=== PATIENT | female | born 1940 | race Caucasian/White ===

== ENCOUNTER 2019-05-07 06:50 | Inpatient (IN) | payer MEDICARE, BC ==
[~2019-05-07 06:50] MED LIST: Bisacodyl 5 MG Tab PO PRN; Cyclobenzaprine 10 MG Tab PO PRN; Lidocaine 1%/Sod Bicarbonate in NS 8.4% 1 ML Syringe IDERM PRN; Magnesium Hydroxide 400 MG/5 ML Susp 30 ML Cup PO PRN; Morphine 2 MG/ML Syringe IVPUSH PRN; Naloxone 0.4 MG/ML SDV IVPUSH PRN; Ondansetron 4 MG/2 ML SDV IVPUSH PRN; Sennosides 8.6 MG Tab PO PRN; Sodium Chloride 0.9% 10 ML Syringe FLUSH PRN
[2019-05-07] MEDS ORDERED: ceFAZolin 2 GM in Premix Bag 1 BAG IV SCH (07:00)
[2019-05-07] MEDS: Lactated Ringers 1,000 ML IV SCH ×2 (07:20→16:49)
--- NOTE | 2019-05-07 07:26 | PCM.PREANE ---
Preanesthetic Assessment - Anesthesia/Transfusion/Family Hx Anesthesia History: Prior Anesthesia Without Reaction Family History of Anesthesia Reaction: No Transfusion History: No Prior Transfusion(s) - Review of Systems General: No Symptoms Pulmonary: No Symptoms Cardiovascular: No Symptoms Gastrointestinal: No Symptoms Neurological: No Symptoms Other: Reports: None - Physical Assessment NPO Status Date: 05/06/19 NPO Status Time: 18:30 Height: 1.6 m Weight: 64.8 kg ASA Class: 2 Mental Status: Alert & Oriented x3 Dentition: Reports: Dentures (full upper, partial lower) Thyro-Mental Finger Breadths: 3 Mouth Opening Finger Breadths: 3 ROM/Head Extension: Full Lungs: Clear to Auscultation, Normal Respiratory Effort Cardiovascular: Regular Rate, Regular Rhythm - Imaging/EKG Impressions: NSR per EKG 04/24/19 CXR wnl - Allergies Allergies/Adverse Reactions: Allergies Allergy/AdvReac Type Severity Reaction Status Date / Time No Known Allergies Allergy Verified 05/06/19 10:48 - Blood Blood Available: Yes Product(s) Available: PRBC - Acknowledgements Anesthesia Type Planned: General Anesthesia, Spinal Pt an Appropriate Candidate for the Planned Anesthesia: Yes Alternatives and Risks of Anesthesia Discussed w Pt/Guardian: Yes Pt/Guardian Understands and Agrees with Anesthesia Plan: Yes PreAnesthesia Questionnaire HEENT History: Reports: Cataract, Impaired Vision, Macular Degeneration, Other ( See Below) Other HEENT History: impacted cerumen Cardiovascular History: Reports: Hypertension [employer]ATOR History: Reports: None Musculoskeletal History: Other Musculoskeletal History: olecranon bursitis, knee arthroscopy - Past Surgical History Head Surgeries/Procedures: Reports: None Cardiovascular Surgical History: Reports: None Respiratory Surgical History: Reports: None GI Surgical History: Reports: None Female Surgical History: Reports: Tubal Ligation Male Surgical History: Reports: None Endocrine Surgical History: Reports: None Neurological Surgical History: Reports: None Musculoskeletal Surgical History: Reports: Arthroscopic Knee Oncologic Surgical History: Reports: None Dermatological Surgical History: Reports: None - SUBSTANCE USE Smoking Status *Q: Never Smoker Second Hand Smoke Exposure: No Recreational Drug Use History: No - HOME MEDS Home Medications: Home Meds Cholecalciferol (Vitamin D3) [Vitamin D3] 5,000 unit PO DAILY 05/06/19 [History] amLODIPine Besylate [Amlodipine Besylate] 5 mg PO DAILY 05/06/19 [History] lisinopriL [Lisinopril] 20 mg PO DAILY 05/06/19 [History] - CURRENT (IN HOUSE) MEDS Current Meds: Current Medications Aspirin (Ecotrin) 325 mg PO BID [facility] Bisacodyl (Dulcolax) 5 mg PO DAILY PRN PRN Reason: Constipation Morphine Sulfate 8 mg/Epinephrine HCl 0.3 mg/Cefuroxime Sodium 750 mg/Ketorolac Tromethamine 30 mg/Sodium Chloride 27.9 ml 0 mg .XX ASDIRECTED PRN PRN Reason: Other Stop: 05/07/19 12:00 Cyclobenzaprine HCl (Flexeril) 5 mg PO BID PRN PRN Reason: Spasms Docusate Sodium (Colace) 100 mg PO BID KRISTINA Famotidine (Pepcid) 20 mg PO Q12H [facility] Lactated Ringer's (Ringers, Lactated) 1,000 mls @ 125 mls/hr IV ASDIRECTED [facility] Cefazolin Sodium/Dextrose 2 gm (/ Premix) 50 mls @ 100 mls/hr IV Q8H [facility] Stop: 05/07/19 23:44 Ketorolac Tromethamine (Toradol) 15 mg IVPUSH Q6H PRN PRN Reason: Pain Lidocaine/Sodium Bicarbonate (Buffered Lidocaine 1% In Ns 8.4%) 0.25 ml IDERM ONETIME PRN PRN Reason: Prior to IV Start Magnesium Hydroxide (Milk Of Magnesia) 30 ml PO BID PRN PRN Reason: Constipation Morphine Sulfate (Morphine) 2 mg IVPUSH Q2H PRN PRN Reason: Breakthrough Pain Naloxone HCl (Narcan) 0.1 mg IVPUSH Q5M PRN PRN Reason: Oversedation Ondansetron HCl (Zofran) 4 mg IVPUSH Q6H PRN PRN Reason: Nausea/Vomiting Oxycodone/Acetaminophen (Percocet 325-5 Mg) 1 - 2 tab PO Q4H PRN PRN Reason: Pain Senna (Senna) 8.6 mg PO BID PRN PRN Reason: Constipation Sodium Chloride (Saline Flush) 10 ml FLUSH ASDIRECTED PRN PRN Reason: Keep Vein Open Discontinued Medications Cefazolin Sodium/Dextrose 2 gm (/ Premix) 50 mls @ 100 mls/hr IV Q8H [facility] Stop: 05/07/19 23:29
[2019-05-07] MEDS ORDERED: Midazolam 1 MG/ML 2 ML SDV ONE (07:49)
[2019-05-07] MEDS ORDERED: Ondansetron 4 MG/2 ML SDV ONE (07:49)
[2019-05-07] MEDS ORDERED: Propofol 200 MG/20 ML SDV ONE ×4 (07:49→10:35)
[2019-05-07] MEDS ORDERED: fentaNYL 100 MCG/2 ML SDV ONE (07:49)
[2019-05-07] MEDS ORDERED: Lidocaine 1% 4 ML ONE (07:49)
[2019-05-07] MEDS ORDERED: ceFAZolin 1 GM Vial ONE (08:27)
[2019-05-07] MEDS ORDERED: ePHEDrine/Normal Saline 25 MG/5 ML Syringe ONE ×2 (09:09→09:42)
[2019-05-07] MEDS: ceFAZolin 1 GM Vial ONE ×2 (09:31→10:15)
[2019-05-07] MEDS: Bupivacaine 0.25% 10 ML SDV ONE ×4 (09:32→10:18)
[2019-05-07] MEDS: Iodine/Sodium Iodide 2% Tincture 30 ML Bottle ONE ×2 (09:32→10:12)
[2019-05-07] MEDS: Morphine 8 MG, EPINEPHrine 0.3 MG, Cefuroxime 750 MG, Ketorolac 30 MG, Sodium Chloride ... PRN ×10 (09:33→10:17)
[2019-05-07] MEDS: Vancomycin 1 GM SDV ONE ×2 (09:33→10:20)
[2019-05-07] MEDS ORDERED: Lactated Ringers 1,000 ML ONE ×2 (10:13→10:36)
--- NOTE | 2019-05-07 11:01 | PCM.POSTAN ---
POST ANESTHESIA ASSESSMENT - MENTAL STATUS Mental Status: Somnolent - VITAL SIGNS Vital Signs: Last Vital Signs Temp 36.8 C 05/07/19 07:00 Pulse 83 05/07/19 07:00 Resp 16 05/07/19 07:00 BP 149/75 H 05/07/19 07:00 Pulse Ox 96 05/07/19 07:00 - RESPIRATORY Respiratory Status: Respiratory Rate WNL, Airway Patent, O2 Saturation Stable, Supplemental Oxygen - CARDIOVASCULAR CV Status: Pulse Rate WNL, Blood Pressure Stable - GASTROINTESTINAL GI Status: No Symptoms - PAIN Pain Score: 0 - POST OP HYDRATION Hydration Status: Adequate & Stable - OBSERVATIONS Free Text/Narrative:: no anesthesia complications noted
[2019-05-07] MEDS: Acetaminophen/oxyCODONE 325-5 MG Tab PO PRN ×3 (12:07→21:24)
--- NOTE | 2019-05-07 12:31 | CR ---
Pelvis and left hip: AP view of the pelvis was obtained as well as crosstable lateral view of the left hip. Left hip prosthesis is seen. Soft tissue air is noted. Components are aligned. Underlying bony structures are intact. Severe joint space narrowing is noted within the right hip. Bony structures are osteopenic. Impression: 1. Recently placed left hip prosthesis. 2. Severe joint space narrowing at the right hip. 3. Osteopenia. Diagnostic code #2 This report was dictated in [place] Standard Time
[2019-05-07] MEDS ORDERED: Ketorolac 15 MG/ML SDV IVPUSH PRN (14:00)
[2019-05-07] MEDS: ceFAZolin 2 GM in Premix Bag 1 BAG IV SCH ×2 (16:12→23:44)
[2019-05-07] MEDS: Famotidine 20 MG Tab PO SCH (21:23)
[2019-05-07] MEDS: Docusate Sodium 100 MG Cap PO SCH (21:24)
--- NOTE | 2019-05-08 08:05 | PCM48HPAN ---
Post Anesthesia Note - EVALUATION WITHIN 48HRS OF ANESTHETIC Vital Signs in Normal Range: Yes Patient Participated in Evaluation: Yes Respiratory Function Stable: Yes Airway Patent: Yes Cardiovascular Function Stable: Yes Hydration Status Stable: Yes Pain Control Satisfactory: Yes Nausea and Vomiting Control Satisfactory: Yes Mental Status Recovered: Yes (no complaints- little pain) Vital Signs: Last Vital Signs Temp 97.7 F 05/08/19 03:47 Pulse 84 05/08/19 03:47 Resp 18 05/08/19 03:47 BP 121/50 L 05/08/19 03:47 Pulse Ox 99 05/08/19 03:47
[2019-05-08] MEDS: Acetaminophen/oxyCODONE 325-5 MG Tab PO PRN (08:16)
[2019-05-08] MEDS: Famotidine 20 MG Tab PO SCH (08:17)
[2019-05-08] MEDS: ceFAZolin 2 GM in Premix Bag 1 BAG IV SCH (08:18)
[2019-05-08] MEDS: Docusate Sodium 100 MG Cap PO SCH (08:18)
--- NOTE | 2019-05-08 08:44 | PCM.SURGPN ---
- General Info Date of Service: 05/08/19 POD#: 1 Functional Status: Reports: Pain Controlled, Tolerating Diet, Ambulating, Urinating, Incentive Spirometry, Other (The pt states she is doing well.) - Review of Systems General: Denies: Fever, Chills Pulmonary: Denies: Shortness of Breath Cardiovascular: Denies: Chest Pain Gastrointestinal: Denies: Abdominal Pain - Patient Data Vitals - Most Recent: Last Vital Signs Temp 98.4 F 05/08/19 07:28 Pulse 95 05/08/19 07:28 Resp 16 05/08/19 07:28 BP 150/64 H 05/08/19 08:18 Pulse Ox 99 05/08/19 07:28 Weight - Most Recent: 149 lb 8 oz I&O - Last 24 Hours: Intake & Output 05/07/19 05/08/19 05/08/19 22:59 06:59 14:59 Intake Total 2324 850 Output Total 0 1100 Balance 2324 -250 Lab Results Last 24 Hrs: Laboratory Results - last 24 hr 05/08/19 05/08/19 Range/Units 05:08 05:08 WBC 6.02 (3.98-10.04) K/mm3 RBC 3.76 L (3.98-5.22) M/mm3 Hgb 10.6 L D (11.2-15.7) gm/dl Hct 34.5 (34.1-44.9) % MCV 91.8 D (79.4-94.8) fl MCH 28.2 (25.6-32.2) pg MCHC 30.7 L (32.2-35.5) g/dl RDW Std Deviation 42.6 (36.4-46.3) fL Plt Count 197 D (182-369) K/mm3 MPV 9.6 (9.4-12.3) fl Sodium 136 (136-145) mEq/L Potassium 4.4 (3.5-5.1) mEq/L Chloride 102 (98-107) mEq/L Carbon Dioxide 29 (21-32) mEq/L Anion Gap 9.4 (5-15) BUN 16 (7-18) mg/dL Creatinine 0.7 (0.55-1.02) mg/dL Est Cr Clr Drug Dosing 55.09 mL/min Estimated GFR (MDRD) > 60 (>60) mL/min BUN/Creatinine Ratio 22.9 H (14-18) Glucose 111 (83-115) mg/dL Calcium 8.4 L (8.5-10.1) mg/dL Total Bilirubin 1.1 H (0.2-1.0) mg/dL AST 26 (15-37) U/L ALT 19 (14-59) U/L Alkaline Phosphatase 58 (46-116) U/L Total Protein 5.2 L (6.4-8.2) g/dl Albumin 2.7 L (3.4-5.0) g/dl Globulin 2.5 gm/dL Albumin/Globulin Ratio 1.1 (1-2) Med Orders - Current: Current Medications Amlodipine Besylate (Norvasc) 5 mg PO DAILY [facility] Last Admin: 05/08/19 08:17 Dose: 5 mg Aspirin (Ecotrin) 325 mg PO BID [facility] Last Admin: 05/08/19 08:17 Dose: 325 mg Bisacodyl (Dulcolax) 5 mg PO DAILY PRN PRN Reason: Constipation Cholecalciferol (Vitamin D3) 5,000 unit PO DAILY [facility] Last Admin: 05/08/19 08:18 Dose: 5,000 unit Cyclobenzaprine HCl (Flexeril) 5 mg PO BID PRN PRN Reason: Spasms Docusate Sodium (Colace) 100 mg PO BID [facility] Last Admin: 05/08/19 08:18 Dose: 100 mg Famotidine (Pepcid) 20 mg PO Q12H [facility] Last Admin: 05/08/19 08:17 Dose: 20 mg Cefazolin Sodium/Dextrose 2 gm (/ Premix) 50 mls @ 100 mls/hr IV Q8H [facility] Stop: 05/08/19 08:59 Last Admin: 05/08/19 08:18 Dose: 100 mls/hr Ketorolac Tromethamine (Toradol) 15 mg IVPUSH Q6H PRN PRN Reason: Pain Last Admin: 05/07/19 21:25 Dose: 15 mg Lisinopril (Prinivil) 20 mg PO DAILY [facility] Last Admin: 05/08/19 08:18 Dose: 20 mg Magnesium Hydroxide (Milk Of Magnesia) 30 ml PO BID PRN PRN Reason: Constipation Morphine Sulfate (Morphine) 2 mg IVPUSH Q2H PRN PRN Reason: Breakthrough Pain Naloxone HCl (Narcan) 0.1 mg IVPUSH Q5M PRN PRN Reason: Oversedation Ondansetron HCl (Zofran) 4 mg IVPUSH Q6H PRN PRN Reason: Nausea/Vomiting Last Admin: 05/08/19 08:37 Dose: 4 mg Oxycodone/Acetaminophen (Percocet 325-5 Mg) 1 - 2 tab PO Q4H PRN PRN Reason: Pain Last Admin: 05/08/19 08:16 Dose: 2 tab Senna (Senna) 8.6 mg PO BID PRN PRN Reason: Constipation Discontinued Medications Bupivacaine HCl (Sensorcaine-Mpf 0.25%) Confirm Administered Dose 10 ml .ROUTE .STK-MED ONE Stop: 05/07/19 08:28 Last Admin: 05/07/19 10:18 Dose: 10 ml Bupivacaine HCl (Sensorcaine-Mpf 0.25%) Confirm Administered Dose 20 ml .ROUTE .STK-MED ONE Stop: 05/07/19 08:28 Last Admin: 05/07/19 10:18 Dose: 20 ml Cefazolin Sodium (Ancef) Confirm Administered Dose 2 gm .ROUTE .STK-MED ONE Stop: 05/07/19 07:51 Last Admin: 05/07/19 10:15 Dose: 2 gm Cefazolin Sodium (Ancef) Confirm Administered Dose 2 gm .ROUTE .STK-MED ONE Stop: 05/07/19 08:28 Morphine Sulfate 8 mg/Epinephrine HCl 0.3 mg/Cefuroxime Sodium 750 mg/Ketorolac Tromethamine 30 mg/Sodium Chloride 27.9 ml 0 mg .XX ASDIRECTED PRN PRN Reason: Other Stop: 05/07/19 12:00 Last Admin: 05/07/19 10:17 Dose: 788.3 mg Ephedrine Sulfate (Ephedrine In Ns) Confirm Administered Dose 25 mg .ROUTE .STK- MED ONE Stop: 05/07/19 09:10 Ephedrine Sulfate (Ephedrine In Ns) Confirm Administered Dose 25 mg .ROUTE .STK- MED ONE Stop: 05/07/19 09:43 Fentanyl (Sublimaze) Confirm Administered Dose 100 mcg .ROUTE .STK-MED ONE Stop: 05/07/19 07:50 Lactated Ringer's (Ringers, Lactated) 1,000 mls @ 125 mls/hr IV ASDIRECTED [facility] Stop: 05/07/19 23:00 Last Admin: 05/07/19 16:49 Dose: 125 mls/hr Cefazolin Sodium/Dextrose 2 gm (/ Premix) 50 mls @ 100 mls/hr IV Q8H [facility] Stop: 05/07/19 23:29 Last Admin: 05/07/19 19:51 Dose: Not Given Lidocaine HCl (Xylocaine-Mpf 1%) Confirm Administered Dose 4 mls @ as directed .ROUTE .STK-MED ONE Stop: 05/07/19 07:50 Lactated Ringer's (Ringers, Lactated) Confirm Administered Dose 1,000 mls @ as directed .ROUTE .STK-MED ONE Stop: 05/07/19 10:14 Lactated Ringer's (Ringers, Lactated) Confirm Administered Dose 1,000 mls @ as directed .ROUTE .STK-MED ONE Stop: 05/07/19 10:37 Iodine (Iodine 2% Mild Tincture) Confirm Administered Dose 30 ml .ROUTE .STK- MED ONE Stop: 05/07/19 08:27 Last Admin: 05/07/19 10:12 Dose: 18 ml Lidocaine/Sodium Bicarbonate (Buffered Lidocaine 1% In Ns 8.4%) 0.25 ml IDERM ONETIME PRN PRN Reason: Prior to IV Start Last Admin: 05/07/19 07:19 Dose: 0.25 ml Midazolam HCl (Versed 1 Mg/Ml) Confirm Administered Dose 2 mg .ROUTE .STK-MED ONE Stop: 05/07/19 07:50 Ondansetron HCl (Zofran) Confirm Administered Dose 4 mg .ROUTE .STK-MED ONE Stop: 05/07/19 07:50 Propofol (Diprivan 20 Ml) Confirm Administered Dose 200 mg .ROUTE .STK-MED ONE Stop: 05/07/19 07:50 Propofol (Diprivan 20 Ml) Confirm Administered Dose 200 mg .ROUTE .STK-MED ONE Stop: 05/07/19 09:31 Propofol (Diprivan 20 Ml) Confirm Administered Dose 200 mg .ROUTE .STK-MED ONE Stop: 05/07/19 10:00 Propofol (Diprivan 20 Ml) Confirm Administered Dose 200 mg .ROUTE .STK-MED ONE Stop: 05/07/19 10:36 Sodium Chloride (Saline Flush) 10 ml FLUSH ASDIRECTED PRN PRN Reason: Keep Vein Open Stop: 05/07/19 18:00 Tranexamic Acid (Cyklokapron) Confirm Administered Dose 1,000 mg .ROUTE .STK- MED ONE Stop: 05/07/19 08:27 Last Admin: 05/07/19 10:21 Dose: 1,000 mg Vancomycin HCl (Vancomycin) Confirm Administered Dose 1 gm .ROUTE .STK-MED ONE Stop: 05/07/19 08:27 Last Admin: 05/07/19 10:20 Dose: 1 gm - Exam Wound/Incisions: Dressing Dry and Intact General: Alert, Cooperative, No Acute Distress Lungs: Normal Respiratory Effort Extremities: Other (Left thigh soft. NVS intact for BLE. Silverio's negative for BLE.) Sepsis Event Note - Evaluation Sepsis Screening Result: No Definite Risk - Focused Exam Vital Signs: Vital Signs Temp Pulse Resp BP Pulse Ox 05/08/19 08:18 150/64 H 05/08/19 08:17 150/64 H 05/08/19 07:28 98.4 F 95 16 150/64 H 99 05/08/19 03:47 97.7 F 84 18 121/50 L 99 05/07/19 23:47 97.9 F 75 14 112/44 L 96 Date Exam was Performed: 05/08/19 Time Exam was Performed: 08:41 - Problem List Review Problem List Initiated/Reviewed/Updated: Yes - My Orders Last 24 Hours: Active Orders 24 hr Category Date Time Status Notify Provider [RC] ASDIRECTED Care 05/07/19 10:59 Active Oxygen Therapy [RC] ASDIRECTED Care 05/07/19 10:59 Active Vital Signs [RC] Q4HR Care 05/07/19 10:59 Active Regular Diet [DIET] Diet 05/07/19 Lunch Active Aspirin [Ecotrin] Med 05/08/19 09:00 Active 325 mg PO BID Cholecalciferol (Vitamin D3) [Vitamin D3] Med 05/08/19 09:00 Active 5,000 unit PO DAILY Docusate Sodium [Colace] Med 05/07/19 21:00 Active 100 mg PO BID Famotidine [Pepcid] Med 05/07/19 21:00 Active 20 mg PO Q12H Ketorolac [Toradol] Med 05/07/19 14:00 Active 15 mg IVPUSH Q6H PRN amLODIPine [Norvasc] Med 05/08/19 09:00 Active 5 mg PO DAILY ceFAZolin [Ancef] 2 gm Med 05/07/19 16:30 Active Premix Bag 1 bag IV Q8H lisinopriL [Prinivil] Med 05/08/19 09:00 Active 20 mg PO DAILY Medication Orders Amlodipine Besylate (Norvasc) 5 mg PO DAILY [facility] Last Admin: 05/08/19 08:17 Dose: 5 mg Aspirin (Ecotrin) 325 mg PO BID [facility] Last Admin: 05/08/19 08:17 Dose: 325 mg Bisacodyl (Dulcolax) 5 mg PO DAILY PRN PRN Reason: Constipation Cholecalciferol (Vitamin D3) 5,000 unit PO DAILY [facility] Last Admin: 05/08/19 08:18 Dose: 5,000 unit Cyclobenzaprine HCl (Flexeril) 5 mg PO BID PRN PRN Reason: Spasms Docusate Sodium (Colace) 100 mg PO BID [facility] Last Admin: 05/08/19 08:18 Dose: 100 mg Admin: 05/07/19 21:24 Dose: 100 mg Famotidine (Pepcid) 20 mg PO Q12H [facility] Last Admin: 05/08/19 08:17 Dose: 20 mg Admin: 05/07/19 21:23 Dose: 20 mg Cefazolin Sodium/Dextrose 2 gm (/ Premix) 50 mls @ 100 mls/hr IV Q8H [facility] Stop: 05/08/19 08:59 Last Admin: 05/08/19 08:18 Dose: 100 mls/hr Infusion: 05/08/19 00:14 Dose: 100 mls/hr Admin: 05/07/19 23:44 Dose: 100 mls/hr Infusion: 05/07/19 16:42 Dose: 100 mls/hr Admin: 05/07/19 16:12 Dose: 100 mls/hr Ketorolac Tromethamine (Toradol) 15 mg IVPUSH Q6H PRN PRN Reason: Pain Last Admin: 05/07/19 21:25 Dose: 15 mg Lisinopril (Prinivil) 20 mg PO DAILY [facility] Last Admin: 05/08/19 08:18 Dose: 20 mg Magnesium Hydroxide (Milk Of Magnesia) 30 ml PO BID PRN PRN Reason: Constipation Morphine Sulfate (Morphine) 2 mg IVPUSH Q2H PRN PRN Reason: Breakthrough Pain Naloxone HCl (Narcan) 0.1 mg IVPUSH Q5M PRN PRN Reason: Oversedation Ondansetron HCl (Zofran) 4 mg IVPUSH Q6H PRN PRN Reason: Nausea/Vomiting Last Admin: 05/08/19 08:37 Dose: 4 mg Oxycodone/Acetaminophen (Percocet 325-5 Mg) 1 - 2 tab PO Q4H PRN PRN Reason: Pain Last Admin: 05/08/19 08:16 Dose: 2 tab Admin: 05/07/19 21:24 Dose: 2 tab Admin: 05/07/19 16:51 Dose: 1 tab Admin: 05/07/19 12:07 Dose: 1 tab Senna (Senna) 8.6 mg PO BID PRN PRN Reason: Constipation - Assessment Assessment (Free Text/Narrative):: POD#1 - left SKYE - Plan Plan (Free Text/Narrative):: 1. Discharge to home today if inpt goals met. 2. 325mg ASA PO BID, frequent mobility, TEDs. 3. SKYE precautions. WBAT LLE. 4. Outpatient therapy. 5. Hgb 10.6. The pt's case was discussed with Dr. Velez.
[2019-05-08] MEDS ORDERED: Cholecalciferol (Vitamin D3) 5,000 UNIT Tab PO SCH (09:00)
[2019-05-08] MEDS ORDERED: Aspirin 325 MG Tab.EC PO SCH (09:00)
[2019-05-08] MEDS ORDERED: Lisinopril 20 MG Tab PO SCH (09:00)
[2019-05-08] MEDS ORDERED: amLODIPine 5 MG Tab PO SCH (09:00)
--- NOTE | 2019-05-08 15:12 | PCM.DCSUM1 ---
Discharge Summary - Hospital Course Brief History: Yoanna is a 79 yo female who underwent left SKYE with Dr. Velez on 05-07-2019. The procedure was completed under spinal anesthesia with sedation. The pt tolerated the procedure well and was admitted to the Medical- Surgical Unit. The pt's Hospital course was uneventful. The pt's Hgb on POD#1 was 10.6. On POD#1, 325mg ASA BID was initiated for VTE prophylaxis. SCDs and TEDs were also ordered. A Mepilex dressing was placed at the incision site at the time of surgery and remained clean and dry. The pt participated in P.T. and O.T. and progressed well. She followed the SKYE precautions. The pt was allowed to WBAT. On POD#1, the pt was deemed appropriate to discharge to home. - Discharge Data Discharge Date: 05/08/19 Discharge Disposition: Home, Self-Care 01 Condition: Good - Referral to Home Health Primary Care Physician: Mercedes Mcknight NP - Patient Summary/Data Consults: Consultations 05/07/19 06:44 OT Evaluation and Treatment [CONS] Routine PT Evaluation and Treatment [CONS] Routine - Patient Instructions Diet: Regular Diet as Tolerated Activity: Apply Ice Activity, Other: Follow the total hip precautions. Driving: Do Not Drive Showering/Bathing: May Shower Wound/Incision Care: Keep Operative Site/Wound Site Clean and Dry, Do NOT Change Dressing Notify Provider of: Fever, Increased Pain, Swelling and Redness, Drainage, Nausea and/or Vomiting Other/Special Instructions: Please get up and moving around EVERY HOUR while awake. This helps to prevent blood clots. Please use your walker and have help with mobility as needed. Take a short walk in your home every hour while awake. Please take 325mg Aspirin TWICE daily. The aspirin is being used for blood clot prevention and not for pain management so please do not miss a dose of the medication. You could use a medication like Pepcid or Tagamet and a medication like Prilosec or Nexium to protect your stomach while you are using the aspirin. At home, please complete the exercises that you learned during the Hospital stay. Schedule for physical therapy. Follow the total hip precautions. Use the pain medication as needed. The medication may cause drowsiness and constipation. Contact your primary care provider for instructions if you are constipated. You may use a stool softener like docusate sodium or Colace 100mg twice daily and/or a laxative like Miralax daily for constipation. Increase your water and fiber intake while you are using the pain medication. Discontinue use of the pain medication as soon as able. Please do not use other medications that may cause drowsiness (other pain medications, anxiety pills, cold medications, sleeping pills, etc) while using the prescription pain medication. Do not use alcohol while using the pain medication. You may use acetaminophen or Tylenol for pain management, however, please ensure you are not using over 4000 mg or 4 grams of acetaminophen per day from all sources. Your pain medication has 325mg of acetaminophen per tablet. At this time, please do not use ibuprofen (Motrin, Advil) or naproxen (Aleve) for pain management as you are using the aspirin. When the aspirin course is completed in 5 weeks, you could use ibuprofen or naproxen for pain management (if this is allowed by your primary care provider) . Wear the NATHALIE hose during the day and you may remove these at night. Elevate the limb to decrease swelling. Place ice to the area often. Place a towel between your skin and the blue pad. Use the incentive spirometer often. Take deep breaths throughout the day. Please keep the dressing in place until follow -up. Notify the Clinic if the dressing becomes saturated. Increase your protein intake while you are healing. If you have diabetes, please closely monitor your blood sugars and notify your primary care provider with abnormal values. Elevated blood sugars increases the risk of infection. Call the Clinic with questions or concerns - [phone]. - Discharge Plan *PRESCRIPTION DRUG MONITORING PROGRAM REVIEWED*: No *COPY OF PRESCRIPTION DRUG MONITORING REPORT IN PATIENT JAS: No Prescriptions/Med Rec: Acetaminophen/oxyCODONE [Percocet 325-5 MG] 1 - 2 tab PO Q4H PRN #60 tablet PRN Reason: Pain Aspirin [Ecotrin EC] 325 mg PO BID #70 tab.ec Cyclobenzaprine [Flexeril] 5 mg PO BID PRN #20 tablet PRN Reason: Spasms Home Medications: Home Meds Cholecalciferol (Vitamin D3) [Vitamin D3] 5,000 unit PO DAILY 05/06/19 [History] amLODIPine Besylate [Amlodipine Besylate] 5 mg PO DAILY 05/06/19 [History] lisinopriL [Lisinopril] 20 mg PO DAILY 05/06/19 [History] Acetaminophen/oxyCODONE [Percocet 325-5 MG] 1 - 2 tab PO Q4H PRN #60 tablet [Rx] Aspirin [Ecotrin EC] 325 mg PO BID #70 tab.ec 05/08/19 [Rx] Cyclobenzaprine [Flexeril] 5 mg PO BID PRN #20 tablet 05/08/19 [Rx] Docusate Sodium [Colace] 100 mg PO BID cap 05/08/19 [Rx] Famotidine [Pepcid] 20 mg PO Q12H tablet 05/08/19 [Rx] Magnesium Hydroxide [Milk of Magnesia] 30 ml PO BID PRN cup 05/08/19 [Rx] Sennosides [Senna] 8.6 mg PO BID PRN tablet 05/08/19 [Rx] bisacodyL [Dulcolax] 5 mg PO DAILY PRN tablet 05/08/19 [Rx] Referrals: Eryn Kimball PA-C [Physician Tag Machine Operator] - (Please follow up with DENISE Hernandez on the following dates- May 15 at 2pm, May 22 at 2pm, & June 18 at 2pm. ) - Discharge Summary/Plan Comment DC Time >30 min.: No - Patient Data Vitals - Most Recent: Last Vital Signs Temp 97.3 F 05/08/19 11:43 Pulse 78 05/08/19 11:43 Resp 18 05/08/19 11:43 BP 118/52 L 05/08/19 11:43 Pulse Ox 93 L 05/08/19 11:43 Weight - Most Recent: 149 lb 8 oz I&O - Last 24 hours: Intake & Output 05/08/19 05/08/19 05/08/19 06:59 14:59 22:59 Intake Total 850 240 Output Total 1100 Balance -250 240 Lab Results - Last 24 hrs: Laboratory Results - last 24 hr 05/08/19 05/08/19 Range/Units 05:08 05:08 WBC 6.02 (3.98-10.04) K/mm3 RBC 3.76 L (3.98-5.22) M/mm3 Hgb 10.6 L D (11.2-15.7) gm/dl Hct 34.5 (34.1-44.9) % MCV 91.8 D (79.4-94.8) fl MCH 28.2 (25.6-32.2) pg MCHC 30.7 L (32.2-35.5) g/dl RDW Std Deviation 42.6 (36.4-46.3) fL Plt Count 197 D (182-369) K/mm3 MPV 9.6 (9.4-12.3) fl Sodium 136 (136-145) mEq/L Potassium 4.4 (3.5-5.1) mEq/L Chloride 102 (98-107) mEq/L Carbon Dioxide 29 (21-32) mEq/L Anion Gap 9.4 (5-15) BUN 16 (7-18) mg/dL Creatinine 0.7 (0.55-1.02) mg/dL Est Cr Clr Drug Dosing 55.09 mL/min Estimated GFR (MDRD) > 60 (>60) mL/min BUN/Creatinine Ratio 22.9 H (14-18) Glucose 111 (83-115) mg/dL Calcium 8.4 L (8.5-10.1) mg/dL Total Bilirubin 1.1 H (0.2-1.0) mg/dL AST 26 (15-37) U/L ALT 19 (14-59) U/L Alkaline Phosphatase 58 (46-116) U/L Total Protein 5.2 L (6.4-8.2) g/dl Albumin 2.7 L (3.4-5.0) g/dl Globulin 2.5 gm/dL Albumin/Globulin Ratio 1.1 (1-2) Med Orders - Current: Current Medications Amlodipine Besylate (Norvasc) 5 mg PO DAILY [facility] Last Admin: 05/08/19 08:17 Dose: 5 mg Aspirin (Ecotrin) 325 mg PO BID [facility] Last Admin: 05/08/19 08:17 Dose: 325 mg Bisacodyl (Dulcolax) 5 mg PO DAILY PRN PRN Reason: Constipation Cholecalciferol (Vitamin D3) 5,000 unit PO DAILY [facility] Last Admin: 05/08/19 08:18 Dose: 5,000 unit Cyclobenzaprine HCl (Flexeril) 5 mg PO BID PRN PRN Reason: Spasms Docusate Sodium (Colace) 100 mg PO BID [facility] Last Admin: 05/08/19 08:18 Dose: 100 mg Famotidine (Pepcid) 20 mg PO Q12H [facility] Last Admin: 05/08/19 08:17 Dose: 20 mg Ketorolac Tromethamine (Toradol) 15 mg IVPUSH Q6H PRN PRN Reason: Pain Last Admin: 05/07/19 21:25 Dose: 15 mg Lisinopril (Prinivil) 20 mg PO DAILY [facility] Last Admin: 05/08/19 08:18 Dose: 20 mg Magnesium Hydroxide (Milk Of Magnesia) 30 ml PO BID PRN PRN Reason: Constipation Morphine Sulfate (Morphine) 2 mg IVPUSH Q2H PRN PRN Reason: Breakthrough Pain Naloxone HCl (Narcan) 0.1 mg IVPUSH Q5M PRN PRN Reason: Oversedation Ondansetron HCl (Zofran) 4 mg IVPUSH Q6H PRN PRN Reason: Nausea/Vomiting Last Admin: 05/08/19 08:37 Dose: 4 mg Oxycodone/Acetaminophen (Percocet 325-5 Mg) 1 - 2 tab PO Q4H PRN PRN Reason: Pain Last Admin: 05/08/19 08:16 Dose: 2 tab Senna (Senna) 8.6 mg PO BID PRN PRN Reason: Constipation Discontinued Medications Bupivacaine HCl (Sensorcaine-Mpf 0.25%) Confirm Administered Dose 10 ml .ROUTE .STK-MED ONE Stop: 05/07/19 08:28 Last Admin: 05/07/19 10:18 Dose: 10 ml Bupivacaine HCl (Sensorcaine-Mpf 0.25%) Confirm Administered Dose 20 ml .ROUTE .STK-MED ONE Stop: 05/07/19 08:28 Last Admin: 05/07/19 10:18 Dose: 20 ml Cefazolin Sodium (Ancef) Confirm Administered Dose 2 gm .ROUTE .STK-MED ONE Stop: 05/07/19 07:51 Last Admin: 05/07/19 10:15 Dose: 2 gm Cefazolin Sodium (Ancef) Confirm Administered Dose 2 gm .ROUTE .STK-MED ONE Stop: 05/07/19 08:28 Morphine Sulfate 8 mg/Epinephrine HCl 0.3 mg/Cefuroxime Sodium 750 mg/Ketorolac Tromethamine 30 mg/Sodium Chloride 27.9 ml 0 mg .XX ASDIRECTED PRN PRN Reason: Other Stop: 05/07/19 12:00 Last Admin: 05/07/19 10:17 Dose: 788.3 mg Ephedrine Sulfate (Ephedrine In Ns) Confirm Administered Dose 25 mg .ROUTE .STK- MED ONE Stop: 05/07/19 09:10 Ephedrine Sulfate (Ephedrine In Ns) Confirm Administered Dose 25 mg .ROUTE .STK- MED ONE Stop: 05/07/19 09:43 Fentanyl (Sublimaze) Confirm Administered Dose 100 mcg .ROUTE .STK-MED ONE Stop: 05/07/19 07:50 Lactated Ringer's (Ringers, Lactated) 1,000 mls @ 125 mls/hr IV ASDIRECTED KRISTINA Stop: 05/07/19 23:00 Last Admin: 05/07/19 16:49 Dose: 125 mls/hr Cefazolin Sodium/Dextrose 2 gm (/ Premix) 50 mls @ 100 mls/hr IV Q8H [facility] Stop: 05/07/19 23:29 Last Admin: 05/07/19 19:51 Dose: Not Given Cefazolin Sodium/Dextrose 2 gm (/ Premix) 50 mls @ 100 mls/hr IV Q8H [facility] Stop: 05/08/19 08:59 Last Admin: 05/08/19 08:18 Dose: 100 mls/hr Lidocaine HCl (Xylocaine-Mpf 1%) Confirm Administered Dose 4 mls @ as directed .ROUTE .STK-MED ONE Stop: 05/07/19 07:50 Lactated Ringer's (Ringers, Lactated) Confirm Administered Dose 1,000 mls @ as directed .ROUTE .STK-MED ONE Stop: 05/07/19 10:14 Lactated Ringer's (Ringers, Lactated) Confirm Administered Dose 1,000 mls @ as directed .ROUTE .STK-MED ONE Stop: 05/07/19 10:37 Iodine (Iodine 2% Mild Tincture) Confirm Administered Dose 30 ml .ROUTE .STK- MED ONE Stop: 05/07/19 08:27 Last Admin: 05/07/19 10:12 Dose: 18 ml Lidocaine/Sodium Bicarbonate (Buffered Lidocaine 1% In Ns 8.4%) 0.25 ml IDERM ONETIME PRN PRN Reason: Prior to IV Start Last Admin: 05/07/19 07:19 Dose: 0.25 ml Midazolam HCl (Versed 1 Mg/Ml) Confirm Administered Dose 2 mg .ROUTE .STK-MED ONE Stop: 05/07/19 07:50 Ondansetron HCl (Zofran) Confirm Administered Dose 4 mg .ROUTE .STK-MED ONE Stop: 05/07/19 07:50 Propofol (Diprivan 20 Ml) Confirm Administered Dose 200 mg .ROUTE .STK-MED ONE Stop: 05/07/19 07:50 Propofol (Diprivan 20 Ml) Confirm Administered Dose 200 mg .ROUTE .STK-MED ONE Stop: 05/07/19 09:31 Propofol (Diprivan 20 Ml) Confirm Administered Dose 200 mg .ROUTE .STK-MED ONE Stop: 05/07/19 10:00 Propofol (Diprivan 20 Ml) Confirm Administered Dose 200 mg .ROUTE .STK-MED ONE Stop: 05/07/19 10:36 Sodium Chloride (Saline Flush) 10 ml FLUSH ASDIRECTED PRN PRN Reason: Keep Vein Open Stop: 05/07/19 18:00 Tranexamic Acid (Cyklokapron) Confirm Administered Dose 1,000 mg .ROUTE .STK- MED ONE Stop: 05/07/19 08:27 Last Admin: 05/07/19 10:21 Dose: 1,000 mg Vancomycin HCl (Vancomycin) Confirm Administered Dose 1 gm .ROUTE .STK-MED ONE Stop: 05/07/19 08:27 Last Admin: 05/07/19 10:20 Dose: 1 gm
--- NOTE | 2019-05-11 13:33 | PCM.OPNOTE ---
- General Post-Op/Procedure Note Date of Surgery/Procedure: 05/07/19 Operative Procedure(s): left total hip arthroplasty Pre Op Diagnosis: left hip osteoarthrosis Post-Op Diagnosis: Same Anesthesia Technique: Local, MAC, Spinal Primary Surgeon: Baljinder Velez Anesthesia Provider: Kyle Carlisle Convolute Tube Winder: Eryn Kimball Convolute Tube Winder: Tisha Kent EBL in mLs: 500 Complications: None Condition: Good Free Text/Narrative:: 5 stem 56 cup 28-2.7
--- NOTE | 2019-05-11 14:14 | OR ---
DATE OF OPERATION: 05/07/2019 SURGEON: Baljinder Velez MD OPERATION PERFORMED: Left total hip arthroplasty. PREOPERATIVE DIAGNOSIS: Left hip osteoarthrosis. POSTOPERATIVE DIAGNOSIS: Left hip osteoarthrosis. ANESTHESIA: Local MAC with spinal. ANESTHESIA PROVIDER: Kyle Carlisle CRNA. ASSISTANTS: Eryn Kimball PA-C and Tisha Kent LPN. ESTIMATED BLOOD LOSS: 500 mL. COMPLICATIONS: None. CONDITION: Stable. IMPLANTS: 1. [place] size 5 Accolade II stem. 2. [place] size 56-mm PSL femoral cup. 3. A 28 -2.7 mm MDM component. DESCRIPTION OF PROCEDURE: The patient was identified in the preop holding area. Proper site was marked and identified by the surgeon. The patient was taken back to the operating theater where after adequate anesthesia, the patient was placed in the right lateral decubitus position. Pegs were then placed. The patient's gluteal fold was parallel to the floor. All bony prominences were well padded. The left hip was then sterilely prepped and draped in the usual sterile fashion. OR time-out was performed. The patient received 2 g IV Ancef. At this time, left hip standard posterior incision was made centered over the greater trochanter. This was taken down to the IT band and gluteal fascia which was then incised along the incisional length. Charnley retractor was then placed. Short external rotators were identified. Takedown of the short external rotators was done from the level of the piriformis down to the lesser trochanter. The hip was then dislocated. Neck cut was completed and found to be adequate. Attention was turned to the acetabulum. Anterior and posterior acetabular retractors were placed. Circumferential removal of the labrum as well as the pulvinar was done at this time. Starting with a 48 reamer, I was able to ream up to a 54. I at this time, then tried to put in a 54-mm Tritanium II acetabular cup. It did not have good welding machine operator arc and the patient was noted to have some oblong wear. So at this time, I decided to go up to a 56 and do a PSL cup at that time, so a 56 PSL cup was impacted into place and was found to have adequate fit. At this time, the MDM liner was impacted into place and attention was turned to the femur. Box chisel was used out laterally on the femur, starter awl was placed down the canal. Starting with the 0 broach, I was able to broach up to a size 5 which was found to be rotationally and vertically stable. At this time, trial components were placed with 0, it was found to be just a hair long, so I used a -2.7 and had adequate gnosticist of leg-lengths and was stable throughout range of motion. Bone hook was then used to dislocate the hip. The size 5 Accolade II stem was then impacted into place after the trial components were removed. The MDM components were constructed on the back table and then impacted into place on the femoral stem and the hip was relocated. A #5 Ethibond suture was used for closure of the short external rotators and capsule. After that, then a 1 L dilute Betadine solution was irrigated through the hip along with 3 L of pulse lavage irrigation with Ancef. Topical tranexamic acid and vancomycin powder were applied. Next, we had the standard closure with using 0 Vicryl for deep closure, #2 barbed suture for IT band and gluteal fascia, 2-0 Vicryl used subcutaneously, and Prineo used for the skin. The patient tolerated the procedure well, was sent to PACU in stable condition. MMSHARONA /[id number]
== END 2019-05-08 12:25 | disposition home or self-care (01) | DRG 470 ==
LOC: JD.MS 06:50
PROVIDERS: ADMIT Orthopaedic Surgery; ATTEND Orthopaedic Surgery
PROC: 0SRB0JZ Replacement of Left Hip Joint with Synthetic Substitute, Open Approach (ICD-10-PCS; principal; 2019-05-07)
DX: M16.12 Unilateral primary osteoarthritis, left hip (principal); I10 Essential (primary) hypertension; H35.30 Unspecified macular degeneration; M70.20 Olecranon bursitis, unspecified elbow; Z96.659 Presence of unspecified artificial knee joint; N95.9 Unspecified menopausal and perimenopausal disorder; Z79.82 Long term (current) use of aspirin; Z79.899 Other long term (current) drug therapy; Z87.891 Personal history of nicotine dependence; Z98.51 Tubal ligation status
CPT/HCPCS: 01214; 36415; 73501-26-LT; 73501-LT; 80053; 85027; 86850; 86900; 86901; 97110-GP; 97116-GP; 97161-GP; 97165-GO; 97530-GO; 97535-GO; A9270-GY; C1776; J0171; J0690; J0697; J1885; J2001; J2250; J2270; J2405; J2704; J3010; J3370; J3490; J7050; J7120

== ENCOUNTER 2019-10-08 07:30 | Inpatient (IN) | payer MEDICARE, BC ==
[~2019-10-08 07:30] MED LIST changes: +Ketorolac 15 MG/ML SDV IVPUSH PRN
[2019-10-08] MEDS ORDERED: Propofol 200 MG/20 ML SDV ONE ×3 (08:01→10:32)
[2019-10-08] MEDS ORDERED: Midazolam 1 MG/ML 2 ML SDV ONE (08:01)
[2019-10-08] MEDS ORDERED: Ondansetron 4 MG/2 ML SDV ONE (08:01)
[2019-10-08] MEDS ORDERED: fentaNYL 100 MCG/2 ML SDV ONE (08:01)
[2019-10-08] MEDS ORDERED: Lidocaine 1% 4 ML ONE (08:02)
[2019-10-08] MEDS ORDERED: ceFAZolin 1 GM Vial ONE ×2 (08:05→08:15)
--- NOTE | 2019-10-08 08:13 | PCM.CONS ---
H&P History of Present Illness - General Date of Service: 10/08/19 Admit Problem/Dx: Admission Diagnosis/Problem Admission Diagnosis/Problem Osteoarthritis of hip Source of Information: Patient, Old Records, Provider, RN, RN Notes Reviewed History Limitations: Reports: No Limitations - History of Present Illness Initial Comments - Free Text/Narative: Yoanna Francis is a 79 yo [address] patient of Dr. Velez who is post-operative day 0 of right SKYE with left knee cortisone injection. Hospital medicine was consulted for post-operative medical care of the following listed medical conditions. At this time she is resting comfortably in bed. Pain is controlled. She denies any chest pain, shortness of breath, palpitations, nausea, or vomiting. She carries a history of: HTN, Macular degeneration, Post-operative nausea and vomiting, osteoporosis. She is a former smoker. She is a full code. Her primary care provider is Mercedes Mcknight NP. - Related Data Allergies/Adverse Reactions: Allergies Allergy/AdvReac Type Severity Reaction Status Date / Time No Known Allergies Allergy Verified 10/08/19 12:58 Home Medications: Home Meds Cholecalciferol (Vitamin D3) [Vitamin D3] 5,000 unit PO DAILY 05/06/19 [History] amLODIPine Besylate [Amlodipine Besylate] 5 mg PO DAILY 05/06/19 [History] lisinopriL [Lisinopril] 20 mg PO DAILY 05/06/19 [History] Multivit-Min/FA/Lutein/Zeaxant [Macular Vitamin Tablet] 2 tab PO DAILY 10/05/19 [History] Past Medical History HEENT History: Reports: Cataract, Impaired Vision, Macular Degeneration, Other (See Below) Other HEENT History: impacted cerumen Cardiovascular History: Reports: Hypertension Respiratory History: Reports: None Gastrointestinal History: Reports: None Genitourinary History: Reports: None GROUP SALES MANAGER History: Reports: None Other Musculoskeletal History: olecranon bursitis, knee arthroscopy Neurological History: Reports: None Psychiatric History: Reports: None Endocrine/Metabolic History: Reports: None Hematologic History: Reports: None Immunologic History: Reports: None Oncologic (Cancer) History: Reports: None Dermatologic History: Reports: None - Past Surgical History Musculoskeletal Surgical History: Reports: Arthroscopic Knee Social & Family History - Family History Family Medical History: Noncontributory - Tobacco Use Smoking Status *Q: Never Smoker Second Hand Smoke Exposure: No - Caffeine Use Caffeine Use: Reports: Coffee - Recreational Drug Use Recreational Drug Use: No H&P Review of Systems - Review of Systems: Review Of Systems: See Below General: Reports: No Symptoms. Denies: Fever, Chills HEENT: Reports: No Symptoms. Denies: Headaches, Sore Throat Pulmonary: Reports: No Symptoms. Denies: Shortness of Breath, Wheezing, Pleuritic Chest Pain, Cough, Sputum Cardiovascular: Reports: No Symptoms. Denies: Chest Pain, Palpitations, Dyspnea on Exertion Gastrointestinal: Reports: No Symptoms. Denies: Abdominal Pain, Constipation, Diarrhea, Nausea, Vomiting Genitourinary: Reports: No Symptoms. Denies: Pain Musculoskeletal: Reports: Leg Pain Skin: Reports: No Symptoms. Denies: Cyanosis Psychiatric: Reports: No Symptoms. Denies: Confusion Neurological: Reports: Difficulty Walking, Gait Disturbance. Denies: Numbness, Tingling Hematologic/Lymphatic: Reports: No Symptoms Immunologic: Reports: No Symptoms Exam - Exam Exam: See Below - Exam Quality Assessment: DVT Prophylaxis General: Alert, Oriented, Cooperative. No: Mild Distress HEENT: Conjunctiva Clear, EACs Clear, Hearing Intact, Mucosa Moist & [place], Posterior Pharynx Clear, PERRLA Neck: Supple, Trachea Midline Lungs: Clear to Auscultation, Normal Respiratory Effort Cardiovascular: Regular Rate, Regular Rhythm GI/Abdominal Exam: Normal Bowel Sounds, Soft, Non-Tender, No Distention (Female) Exam: Deferred Rectal (Female) Exam: Deferred Extremities: Normal Capillary Refill, Leg Pain, Limited Range of Motion, Other (Bandage in place on right leg. Bandage is dry and intact. Cooling pack in place. ) Peripheral Pulses: 2+: Radial (L), Radial (R), Dorsalis Pedis (L), Dorsalis Pedis (R) Skin: Warm, Dry, Intact Neurological: Cranial Nerves Intact (Grossly ) Neuro Extensive - Mental Status: Alert, Oriented x3, Normal Mood/Affect Sepsis Event Note - Focused Exam Date Exam was Performed: 10/08/19 Time Exam was Performed: 14:45 Consult PN Assessment/Plan POD#: 0 Procedures: Procedures 3D RENDER W/INTRP POSTPROCES (03/15/19) ASSAY OF PREALBUMIN (09/24/19) ASSAY THYROID STIM HORMONE (12/27/18) BLOOD TYPING SEROLOGIC ABO (05/07/19) BLOOD TYPING SEROLOGIC RH(D) (05/07/19) BREAST TOMOSYNTHESIS BI (07/24/19) COMPLETE CBC AUTOMATED (09/24/19) COMPREHEN METABOLIC PANEL (09/24/19) CT PELVIS W/O DYE (03/15/19) DX MAMMO INCL CAD UNI (01/18/18) DXA BONE DENSITY AXIAL (04/26/19) ELECTROCARDIOGRAM TRACING (04/24/19) GAIT TRAINING THERAPY (05/07/19) LIPID PANEL (12/27/18) MR-STAPH DNA AMP PROBE (04/24/19) OFFICE/OUTPATIENT VISIT EST (09/24/19) OT EVAL LOW COMPLEX 30 MIN (05/07/19) PCV13 VACCINE IM (04/24/19) PROTHROMBIN TIME (09/24/19) PT EVAL LOW COMPLEX 20 MIN (05/07/19) RBC ANTIBODY SCREEN (05/07/19) REMOVE IMPACTED EAR WAX UNI (04/24/19) ROUTINE VENIPUNCTURE (05/07/19) SCR MAMMO BI INCL CAD (07/24/19) SELF CARE MNGMENT TRAINING (05/07/19) THERAPEUTIC ACTIVITIES (05/07/19) THERAPEUTIC EXERCISES (05/07/19) THROMBOPLASTIN TIME PARTIAL (09/24/19) ULTRASOUND BREAST LIMITED (07/14/17) URINALYSIS AUTO W/O SCOPE (09/24/19) X-RAY EXAM CHEST 2 VIEWS (04/24/19) X-RAY EXAM HIP UNI 1 VIEW (05/07/19) (1) S/P total hip arthroplasty SNOMED Code(s): 089063721849, 063611352864 Code(s): Z96.649 - PRESENCE OF UNSPECIFIED ARTIFICIAL HIP JOINT Priority: High Current Visit: Yes Qualifiers: Laterality: right Qualified Code(s): Z96.641 - Presence of right artificial hip joint (2) Osteoarthritis SNOMED Code(s): 779132638 Code(s): M19.90 - UNSPECIFIED OSTEOARTHRITIS, UNSPECIFIED SITE Priority: High Current Visit: Yes Qualifiers: Osteoarthritis location: multiple joints Osteoarthritis type: primary Qualified Code(s): M89.49 - Other hypertrophic osteoarthropathy, multiple sites (3) HTN (hypertension) SNOMED Code(s): 46046959 Code(s): I10 - ESSENTIAL (PRIMARY) HYPERTENSION Priority: Medium Current Visit: No Qualifiers: Hypertension type: unspecified Qualified Code(s): I10 - Essential (primary) hypertension (4) Macular degeneration SNOMED Code(s): 514409261 Code(s): H35.30 - UNSPECIFIED MACULAR DEGENERATION Priority: Low Current Visit: No Qualifiers: Macular degeneration type: unspecified type Eye laterality: unspecified Qualified Code(s): H35.30 - Unspecified macular degeneration (5) History of postoperative nausea and vomiting SNOMED Code(s): 059321317, 143771190 Code(s): Z87.898 - PERSONAL HISTORY OF OTHER SPECIFIED CONDITIONS Priority: Medium Current Visit: No (6) Osteoporosis SNOMED Code(s): 19904180 Code(s): M81.0 - AGE-RELATED OSTEOPOROSIS W/O CURRENT PATHOLOGICAL FRACTURE Priority: Medium Current Visit: No Qualifiers: Osteoporosis type: unspecified Presence of current pathological fracture: unspecified Qualified Code(s): M81.0 - Age-related osteoporosis without current pathological fracture Problem List Initiated/Reviewed/Updated: Yes Plan: I/P: Acute: S/P right total hip arthroplasty - post-operative day 0 -DVT prophylaxis and pain management per primary care team -PT/OT -IS/RT -Monitor oxygen saturation -Titrate oxygen as needed -Home medications reviewed -Vital signs stable -Monitor labs -Pre-operative Hgb was 14.1 -Pre-operative GFR was >60 -Pre-operative 12-lead showed a sinus rhythm 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 Her PCP is Mercedes Mcknight NP Thank you for allowing us to participate in the care of this patient!! Requesting Provider: Dr. Velez Date Consult Requested: 10/08/19 Patient History Reviewed: Yes Admission H&P Reviewed: Yes Notified Requestor: Yes
[2019-10-08] MEDS ORDERED: Bupivacaine 0.25% 10 ML SDV ONE (08:15)
[2019-10-08] MEDS ORDERED: Vancomycin 1 GM SDV ONE (08:15)
[2019-10-08] MEDS ORDERED: Triamcinolone Acetonide 40 MG/ML 1 ML MDV ONE (08:15)
[2019-10-08] MEDS ORDERED: Iodine/Sodium Iodide 2% Tincture 30 ML Bottle ONE (08:15)
--- NOTE | 2019-10-08 08:21 | PCM.PREANE ---
Preanesthetic Assessment - Procedure Proposed Procedure: Right total hip - Anesthesia/Transfusion/Family Hx Anesthesia History: Prior Anesthesia Without Reaction Family History of Anesthesia Reaction: No Transfusion History: No Prior Transfusion(s) - Review of Systems General: No Symptoms Pulmonary: No Symptoms Cardiovascular: No Symptoms Gastrointestinal: No Symptoms Neurological: No Symptoms Other: Reports: None - Physical Assessment NPO Status Date: 10/07/19 NPO Status Time: 00:00 Height: 1.6 m Weight: 65.2 kg ASA Class: 2 Mental Status: Alert & Oriented x3 Airway Class: Mallampati = 1 Dentition: Reports: Dentures (top), Partial (bottom) Thyro-Mental Finger Breadths: 3 Mouth Opening Finger Breadths: 3 ROM/Head Extension: Full Lungs: Clear to Auscultation, Normal Respiratory Effort Cardiovascular: Regular Rate, Regular Rhythm - Lab Values: Laboratory Last Values COVID-19 PCR Not detected (NOT DETECT) 10/04/19 13:05 MRSA (PCR) Negative 09/13/19 13:29 - Imaging/EKG Impressions: EKG SR rate 74 - Allergies Allergies/Adverse Reactions: Allergies Allergy/AdvReac Type Severity Reaction Status Date / Time No Known Allergies Allergy Verified 10/05/19 13:27 - Anesthesia Plan Pre-Op Medication Ordered: None - Acknowledgements Anesthesia Type Planned: Spinal Pt an Appropriate Candidate for the Planned Anesthesia: Yes Alternatives and Risks of Anesthesia Discussed w Pt/Guardian: Yes Pt/Guardian Understands and Agrees with Anesthesia Plan: Yes PreAnesthesia Questionnaire HEENT History: Reports: Cataract, Impaired Vision, Macular Degeneration, Other (See Below) Other HEENT History: impacted cerumen Cardiovascular History: Reports: Hypertension Respiratory History: Reports: None Gastrointestinal History: Reports: None Genitourinary History: Reports: None ADMINISTRATION DEAN History: Reports: None Other Musculoskeletal History: olecranon bursitis, knee arthroscopy Neurological History: Reports: None Psychiatric History: Reports: None Endocrine/Metabolic History: Reports: None Hematologic History: Reports: None Immunologic History: Reports: None Oncologic (Cancer) History: Reports: None Dermatologic History: Reports: None - Past Surgical History Musculoskeletal Surgical History: Reports: Arthroscopic Knee - SUBSTANCE USE Smoking Status *Q: Former Smoker Tobacco Use Within Last Twelve Months: No Second Hand Smoke Exposure: No Days Per Week of Alcohol Use: 1 Number of Drinks Per Day: 0 Total Drinks Per Week: 0 Recreational Drug Use History: No - HOME MEDS Home Medications: Home Meds Cholecalciferol (Vitamin D3) [Vitamin D3] 5,000 unit PO DAILY 05/06/19 [History] amLODIPine Besylate [Amlodipine Besylate] 5 mg PO DAILY 05/06/19 [History] lisinopriL [Lisinopril] 20 mg PO DAILY 05/06/19 [History] Multivit-Min/FA/Lutein/Zeaxant [Macular Vitamin Tablet] 2 tab PO BID 10/05/19 [History] - CURRENT (IN HOUSE) MEDS Current Meds: Current Medications Aspirin (Ecotrin) 325 mg PO BID [facility] Bisacodyl (Dulcolax) 5 mg PO DAILY PRN PRN Reason: Constipation Morphine Sulfate 8 mg/Epinephrine HCl 0.3 mg/Cefuroxime Sodium 750 mg/Ketorolac Tromethamine 30 mg/Sodium Chloride 7.9 ml 0 mg .XX ONETIME ONE Stop: 10/08/19 10:01 Cyclobenzaprine HCl (Flexeril) 5 mg PO BID PRN PRN Reason: Spasms Docusate Sodium (Colace) 100 mg PO BID KRISTINA Famotidine (Pepcid) 20 mg PO Q12H [facility] Lactated Ringer's (Ringers, Lactated) 1,000 mls @ 125 mls/hr IV ASDIRECTED [facility] Stop: 10/08/19 23:00 Cefazolin Sodium/Dextrose 2 gm (/ Premix) 50 mls @ 100 mls/hr IV Q8H [facility] Stop: 10/08/19 22:59 Ketorolac Tromethamine (Toradol) 15 mg IVPUSH Q6H PRN PRN Reason: Pain Lidocaine/Sodium Bicarbonate (Buffered Lidocaine 1% In Ns 8.4%) 0.25 ml IDERM ONETIME PRN PRN Reason: Prior to IV Start Stop: 10/08/19 18:00 Magnesium Hydroxide (Milk Of Magnesia) 30 ml PO BID PRN PRN Reason: Constipation Morphine Sulfate (Morphine) 2 mg IVPUSH Q2H PRN PRN Reason: Breakthrough Pain Naloxone HCl (Narcan) 0.1 mg IVPUSH Q5M PRN PRN Reason: Oversedation Ondansetron HCl (Zofran) 4 mg IVPUSH Q6H PRN PRN Reason: Nausea/Vomiting Oxycodone/Acetaminophen (Percocet 325-5 Mg) 1 - 2 tab PO Q4H PRN PRN Reason: Pain Senna (Senna) 8.6 mg PO BID PRN PRN Reason: Constipation Sodium Chloride (Saline Flush) 10 ml FLUSH ASDIRECTED PRN PRN Reason: Keep Vein Open Stop: 10/08/19 18:00 Discontinued Medications Cefazolin Sodium (Ancef) Confirm Administered Dose 2 gm .ROUTE .STK-MED ONE Stop: 10/08/19 08:06 Fentanyl (Sublimaze) Confirm Administered Dose 100 mcg .ROUTE .STK-MED ONE Stop: 10/08/19 08:02 Lidocaine HCl (Xylocaine-Mpf 1%) Confirm Administered Dose 4 mls @ as directed .ROUTE .STK-MED ONE Stop: 10/08/19 08:03 Midazolam HCl (Versed 1 Mg/Ml) Confirm Administered Dose 2 mg .ROUTE .STK-MED ONE Stop: 10/08/19 08:02 Propofol (Diprivan 20 Ml) Confirm Administered Dose 200 mg .ROUTE .STK-MED ONE Stop: 10/08/19 08:02
[2019-10-08] MEDS: Lactated Ringers 1,000 ML IV SCH ×2 (08:35→11:57)
[2019-10-08] MEDS ORDERED: ePHEDrine Sulfate/0.9% NaCl/Pf 25 MG/5 ML SYRINGE IV ONE ×2 (09:48→10:07)
[2019-10-08] MEDS ORDERED: Morphine Sulfate 8 MG, EPINEPHrine 0.3 MG, Cefuroxime 750 MG, Ketorolac 30 MG, Sodium C... ONE ×5 (10:00)
[2019-10-08] MEDS ORDERED: Lactated Ringers 1,000 ML ONE (10:02)
--- NOTE | 2019-10-08 11:20 | PCM.POSTAN ---
POST ANESTHESIA ASSESSMENT - MENTAL STATUS Mental Status: Alert, Oriented - VITAL SIGNS Vital Signs: Last Vital Signs Temp 36.2 C 10/08/19 08:00 Pulse 77 10/08/19 08:00 Resp 20 10/08/19 08:00 BP 139/67 10/08/19 08:00 Pulse Ox 98 10/08/19 08:00 - RESPIRATORY Respiratory Status: Respiratory Rate WNL, Airway Patent, O2 Saturation Stable - CARDIOVASCULAR CV Status: Pulse Rate WNL, Blood Pressure Stable - GASTROINTESTINAL GI Status: No Symptoms - PAIN Pain Score: 0 - POST OP HYDRATION Hydration Status: Adequate & Stable - OBSERVATIONS Free Text/Narrative:: no anesthesia complications noted
--- NOTE | 2019-10-08 12:03 | CR ---
Pelvis and right hip: AP view of the pelvis was obtained as well as crosstable lateral view of the right hip. Comparison: Prior pelvis and left hip exam of 05/07/19. Bilateral hip prosthesis are noted. Components are aligned. Soft tissue air around the right hip is seen from the procedure. Bony structures are osteopenic. Impression: 1. Recently placed right hip prosthesis. Stable left hip prosthesis. Diagnostic code #2 This report was dictated in MDT
[2019-10-08] MEDS: Acetaminophen/oxyCODONE 325-5 MG Tab PO PRN ×3 (13:10→17:52)
--- NOTE | 2019-10-08 13:28 | PCM.OPNOTE ---
- General Post-Op/Procedure Note Date of Surgery/Procedure: 10/08/19 Operative Procedure(s): right total hip arthroplasty Pre Op Diagnosis: right hip osteoarthrosis Post-Op Diagnosis: Same Anesthesia Technique: Local, MAC, Spinal Primary Surgeon: Baljinder Velez Anesthesia Provider: Kyle Carlisle Director Learning Services: Eryn Kimball Director Learning Services: Tisha Kent EBL in mLs: 350 Complications: None Condition: Good Free Text/Narrative:: Intake & Output 10/07/19 10/08/19 10/08/19 22:59 06:59 14:59 Intake Total 1300 Balance 1300 54 4 28-2.7
[2019-10-08] MEDS: ceFAZolin 2 GM in Premix Bag 1 BAG IV SCH ×2 (15:37→23:18)
[2019-10-08] MEDS ORDERED: amLODIPine 5 MG Tab PO SCH (18:00)
[2019-10-08] MEDS: Famotidine 20 MG Tab PO SCH (20:26)
[2019-10-08] MEDS: Docusate Sodium 100 MG Cap PO SCH (20:26)
--- NOTE | 2019-10-09 07:21 | PCM.CONSN ---
- General Info Date of Service: 10/09/19 Admission Dx/Problem (Free Text): Admission Diagnosis/Problem Admission Diagnosis/Problem Osteoarthritis of hip Functional Status: Reports: Pain Controlled, Tolerating Diet, Ambulating, Urinating, Incentive Spirometry. Denies: New Symptoms - Review of Systems General: Reports: No Symptoms. Denies: Fever, Chills HEENT: Reports: No Symptoms. Denies: Headaches, Sore Throat Pulmonary: Reports: No Symptoms. Denies: Shortness of Breath, Pleuritic Chest Pain, Cough, Sputum, Wheezing Cardiovascular: Reports: No Symptoms. Denies: Chest Pain, Palpitations, Dyspnea on Exertion Gastrointestinal: Reports: No Symptoms. Denies: Abdominal Pain, Constipation, Diarrhea, Nausea, Vomiting Genitourinary: Reports: No Symptoms. Denies: Pain Musculoskeletal: Reports: Leg Pain Skin: Reports: No Symptoms. Denies: Cyanosis Neurological: Reports: Difficulty Walking, Gait Disturbance. Denies: Confusion, Numbness, Tingling Psychiatric: Reports: No Symptoms - Patient Data Vitals - Most Recent: Last Vital Signs Temp 97.7 F 10/09/19 02:47 Pulse 76 10/09/19 02:47 Resp 12 10/09/19 02:47 BP 131/57 L 10/09/19 02:47 Pulse Ox 96 10/09/19 02:47 Weight - Most Recent: 138 lb 4.8 oz I&O - Last 24 Hours: Intake & Output 10/08/19 10/09/19 10/09/19 22:59 06:59 14:59 Intake Total 1140 650 Output Total 400 700 Balance 740 -50 Lab Results Last 24 Hours: Laboratory Results - last 24 hr 10/08/19 10/09/19 Range/Units 08:35 05:30 WBC 10.99 H (3.98-10.04) K/mm3 RBC 4.24 (3.98-5.22) M/mm3 Hgb 11.7 D (11.2-15.7) gm/dl Hct 37.2 (34.1-44.9) % MCV 87.7 (79.4-94.8) fl MCH 27.6 (25.6-32.2) pg MCHC 31.5 L (32.2-35.5) g/dl RDW Std Deviation 44.0 (36.4-46.3) fL Plt Count 259 (182-369) K/mm3 MPV 9.3 L (9.4-12.3) fl Blood Type A POSITIVE Gel Antibody Screen Negative Med Orders - Current: Current Medications Amlodipine Besylate (Norvasc) 5 mg PO QPM [facility] Last Admin: 10/08/19 17:52 Dose: 5 mg Documented by: Aspirin (Ecotrin) 325 mg PO BID [facility] Bisacodyl (Dulcolax) 5 mg PO DAILY PRN PRN Reason: Constipation Cholecalciferol (Vitamin D3) 5,000 unit PO DAILY [facility] Cyclobenzaprine HCl (Flexeril) 5 mg PO BID PRN PRN Reason: Spasms Docusate Sodium (Colace) 100 mg PO BID [facility] Last Admin: 10/08/19 20:26 Dose: 100 mg Documented by: Famotidine (Pepcid) 20 mg PO Q12H [facility] Last Admin: 10/08/19 20:26 Dose: 20 mg Documented by: Cefazolin Sodium/Dextrose 2 gm (/ Premix) 50 mls @ 100 mls/hr IV Q8H [facility] Stop: 10/09/19 08:44 Last Admin: 10/08/19 23:18 Dose: 100 mls/hr Documented by: Ketorolac Tromethamine (Toradol) 15 mg IVPUSH Q6H PRN PRN Reason: Pain Magnesium Hydroxide (Milk Of Magnesia) 30 ml PO BID PRN PRN Reason: Constipation Morphine Sulfate (Morphine) 2 mg IVPUSH Q2H PRN PRN Reason: Breakthrough Pain Naloxone HCl (Narcan) 0.1 mg IVPUSH Q5M PRN PRN Reason: Oversedation Ondansetron HCl (Zofran) 4 mg IVPUSH Q6H PRN PRN Reason: Nausea/Vomiting Oxycodone/Acetaminophen (Percocet 325-5 Mg) 1 - 2 tab PO Q4H PRN PRN Reason: Pain Last Admin: 10/08/19 17:52 Dose: 2 tab Documented by: Senna (Senna) 8.6 mg PO BID PRN PRN Reason: Constipation Discontinued Medications Bupivacaine HCl (Sensorcaine-Mpf 0.25%) Confirm Administered Dose 40 ml .ROUTE .STK-MED ONE Stop: 10/08/19 08:16 Last Admin: 10/08/19 10:44 Dose: 40 ml Documented by: Cefazolin Sodium (Ancef) Confirm Administered Dose 2 gm .ROUTE .STK-MED ONE Stop: 10/08/19 08:06 Cefazolin Sodium (Ancef) Confirm Administered Dose 2 gm .ROUTE .STK-MED ONE Stop: 10/08/19 08:16 Last Admin: 10/08/19 10:40 Dose: 2 gm Documented by: Morphine Sulfate 8 mg/Epinephrine HCl 0.3 mg/Cefuroxime Sodium 750 mg/Ketorolac Tromethamine 30 mg/Sodium Chloride 7.9 ml 0 mg .XX ONETIME ONE Stop: 10/08/19 10:01 Last Admin: 10/08/19 10:45 Dose: 788.3 mg Documented by: Ephedrine Sulfate (Ephedrine 25 Mg/5 Ml Syringe) Confirm Administered Dose 25 mg IV .STK-MED ONE Stop: 10/08/19 09:49 Ephedrine Sulfate (Ephedrine 25 Mg/5 Ml Syringe) Confirm Administered Dose 25 mg IV .STK-MED ONE Stop: 10/08/19 10:08 Fentanyl (Sublimaze) Confirm Administered Dose 100 mcg .ROUTE .ST-MED ONE Stop: 10/08/19 08:02 Lactated Ringer's (Ringers, Lactated) 1,000 mls @ 125 mls/hr IV ASDIRECTED [facility] Stop: 10/08/19 23:00 Last Admin: 10/08/19 11:57 Dose: 125 mls/hr Documented by: Lidocaine HCl (Xylocaine-Mpf 1%) Confirm Administered Dose 4 mls @ as directed .ROUTE .ST-MED ONE Stop: 10/08/19 08:03 Lactated Ringer's (Ringers, Lactated) Confirm Administered Dose 1,000 mls @ as directed .ROUTE .STK-MED ONE Stop: 10/08/19 10:03 Iodine (Iodine 2% Mild Tincture) Confirm Administered Dose 30 ml .ROUTE .STK-MED ONE Stop: 10/08/19 08:16 Last Admin: 10/08/19 10:39 Dose: 18 ml Documented by: Lidocaine/Sodium Bicarbonate (Buffered Lidocaine 1% In Ns 8.4%) 0.25 ml IDERM ONETIME PRN PRN Reason: Prior to IV Start Stop: 10/08/19 18:00 Last Admin: 10/08/19 08:35 Dose: 0.25 ml Documented by: Midazolam HCl (Versed 1 Mg/Ml) Confirm Administered Dose 2 mg .ROUTE .STK-MED ONE Stop: 10/08/19 08:02 Miscellaneous Medication (Phenylephrine 1 Mg/10 Ml-Ns) Confirm Administered Dose 1 mg IV .STK-MED ONE Stop: 10/08/19 10:35 Ondansetron HCl (Zofran) Confirm Administered Dose 4 mg .ROUTE .STK-MED ONE Stop: 10/08/19 08:02 Propofol (Diprivan 20 Ml) Confirm Administered Dose 200 mg .ROUTE .STK-MED ONE Stop: 10/08/19 08:02 Propofol (Diprivan 20 Ml) Confirm Administered Dose 200 mg .ROUTE .STK-MED ONE Stop: 10/08/19 10:03 Propofol (Diprivan 20 Ml) Confirm Administered Dose 200 mg .ROUTE .STK-MED ONE Stop: 10/08/19 10:33 Sodium Chloride (Saline Flush) 10 ml FLUSH ASDIRECTED PRN PRN Reason: Keep Vein Open Stop: 10/08/19 18:00 Tranexamic Acid (Cyklokapron) Confirm Administered Dose 1,000 mg .ROUTE .STK-MED ONE Stop: 10/08/19 08:16 Last Admin: 10/08/19 10:46 Dose: 1,000 mg Documented by: Triamcinolone Acetonide ([email or web address]) Confirm Administered Dose 80 mg .ROUTE .STK-MED ONE Stop: 10/08/19 08:16 Last Admin: 10/08/19 10:51 Dose: 80 mg Documented by: Vancomycin HCl (Vancomycin) Confirm Administered Dose 1 gm .ROUTE .STK-MED ONE Stop: 10/08/19 08:16 Last Admin: 10/08/19 10:45 Dose: 1 gm Documented by: - Exam Quality Assessment: DVT Prophylaxis. No: Supplemental Oxygen, Urine Catheter General: Alert, Oriented, Cooperative, No Acute Distress HEENT: Pupils Equal, Pupils Reactive, Mucous Membr. Moist/[place] Neck: Supple, Trachea Midline Lungs: Clear to Auscultation, Normal Respiratory Effort Cardiovascular: Regular Rate, Regular Rhythm GI/Abdominal Exam: Normal Bowel Sounds, Soft, Non-Tender, No Distention (Female) Exam: Deferred Back Exam: Normal Inspection, Full Range of Motion Extremities: Normal Capillary Refill, Leg Pain, Limited Range of Motion, Other (Bandage in place on right hip. Cooling pack in place ) Peripheral Pulses: 2+: Radial (L), Radial (R), Dorsalis Pedis (L), Dorsalis Pedis (R) Skin: Warm, Dry, Intact Wound/Incisions: Dressing Dry and Intact Neurological: No New Focal Deficit Psy/Mental Status: Alert, Normal Affect, Normal Mood Sepsis Event Note - Evaluation Sepsis Screening Result: No Definite Risk - Focused Exam Vital Signs: Vital Signs Temp Pulse Resp BP Pulse Ox 10/09/19 02:47 97.7 F 76 12 131/57 L 96 10/08/19 23:26 97.7 F 115/79 10/08/19 23:23 72 16 97 10/08/19 20:35 136/59 L 10/08/19 19:26 97.5 F 77 20 96 Date Exam was Performed: 10/09/19 Time Exam was Performed: 09:39 Consult PN Assessment/Plan POD#: 1 Procedures: Procedures 3D RENDER W/INTRP POSTPROCES (03/15/19) ASSAY OF PREALBUMIN (09/24/19) ASSAY THYROID STIM HORMONE (12/27/18) BLOOD TYPING SEROLOGIC ABO (05/07/19) BLOOD TYPING SEROLOGIC RH(D) (05/07/19) BREAST TOMOSYNTHESIS BI (07/24/19) COMPLETE CBC AUTOMATED (09/24/19) COMPREHEN METABOLIC PANEL (09/24/19) CT PELVIS W/O DYE (03/15/19) DX MAMMO INCL CAD UNI (01/18/18) DXA BONE DENSITY AXIAL (04/26/19) ELECTROCARDIOGRAM TRACING (04/24/19) GAIT TRAINING THERAPY (05/07/19) LIPID PANEL (12/27/18) MR-STAPH DNA AMP PROBE (04/24/19) OFFICE/OUTPATIENT VISIT EST (09/24/19) OT EVAL LOW COMPLEX 30 MIN (05/07/19) PCV13 VACCINE IM (04/24/19) PROTHROMBIN TIME (09/24/19) PT EVAL LOW COMPLEX 20 MIN (05/07/19) RBC ANTIBODY SCREEN (05/07/19) REMOVE IMPACTED EAR WAX UNI (04/24/19) ROUTINE VENIPUNCTURE (05/07/19) SCR MAMMO BI INCL CAD (07/24/19) SELF CARE MNGMENT TRAINING (05/07/19) THERAPEUTIC ACTIVITIES (05/07/19) THERAPEUTIC EXERCISES (05/07/19) THROMBOPLASTIN TIME PARTIAL (09/24/19) ULTRASOUND BREAST LIMITED (07/14/17) URINALYSIS AUTO W/O SCOPE (09/24/19) X-RAY EXAM CHEST 2 VIEWS (04/24/19) X-RAY EXAM HIP UNI 1 VIEW (05/07/19) (1) S/P total hip arthroplasty SNOMED Code(s): 697902802928, 329326400229 Code(s): Z96.649 - PRESENCE OF UNSPECIFIED ARTIFICIAL HIP JOINT Priority: High Current Visit: Yes Qualifiers: Laterality: right Qualified Code(s): Z96.641 - Presence of right artificial hip joint (2) Osteoarthritis SNOMED Code(s): 942379345 Code(s): M19.90 - UNSPECIFIED OSTEOARTHRITIS, UNSPECIFIED SITE Priority: High Current Visit: Yes Qualifiers: Osteoarthritis location: multiple joints Osteoarthritis type: primary Qualified Code(s): M89.49 - Other hypertrophic osteoarthropathy, multiple sites (3) HTN (hypertension) SNOMED Code(s): 78588237 Code(s): I10 - ESSENTIAL (PRIMARY) HYPERTENSION Priority: Medium Current Visit: No Qualifiers: Hypertension type: unspecified Qualified Code(s): I10 - Essential (primary) hypertension (4) Macular degeneration SNOMED Code(s): 367100604 Code(s): H35.30 - UNSPECIFIED MACULAR DEGENERATION Priority: Low Current Visit: No Qualifiers: Macular degeneration type: unspecified type Eye laterality: unspecified Qualified Code(s): H35.30 - Unspecified macular degeneration (5) History of postoperative nausea and vomiting SNOMED Code(s): 648776127, 730000605 Code(s): Z87.898 - PERSONAL HISTORY OF OTHER SPECIFIED CONDITIONS Priority: Medium Current Visit: No (6) Osteoporosis SNOMED Code(s): 81783029 Code(s): M81.0 - AGE-RELATED OSTEOPOROSIS W/O CURRENT PATHOLOGICAL FRACTURE Priority: Medium Current Visit: No Qualifiers: Osteoporosis type: unspecified Presence of current pathological fracture: unspecified Qualified Code(s): M81.0 - Age-related osteoporosis without current pathological fracture Problem List Initiated/Reviewed/Updated: Yes My Orders Last 24 Hours: My Active Orders 10/08/19 18:00 amLODIPine [Norvasc] 5 mg PO QPM 10/09/19 09:00 Cholecalciferol (Vitamin D3) [Vitamin D3] 5,000 unit PO DAILY Plan: I/P: Acute: S/P right total hip arthroplasty - post-operative day 1 -DVT prophylaxis and pain management per primary care team -PT/OT -IS/RT -Monitor oxygen saturation -Titrate oxygen as needed -Home medications reviewed -Vital signs stable -Monitor labs -Pre-operative Hgb was 14.1; Now 11.7 -Pre-operative GFR was >60; Now >60 -Pre-operative 12-lead showed a sinus rhythm 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 Her PCP is Mercedes Mcknight NP From a hospitalist standpoint Yoanna is doing well. She has been up ambulating and working with therapies. Her pain is controlled. Her labs and vital signs remain stable. She has urinated and is off of oxygen. She is cleared for discharge pending primary team and PT/OT agreement. Thank you for allowing us to participate in the care of this patient!!
--- NOTE | 2019-10-09 08:08 | PCM.SURGPN ---
- General Info Date of Service: 10/09/19 POD#: 1 Functional Status: Reports: Pain Controlled, Tolerating Diet, Ambulating, Urinating, Incentive Spirometry, Other (The pt states she is doing well.) - Patient Data Vitals - Most Recent: Last Vital Signs Temp 97.7 F 10/09/19 02:47 Pulse 76 10/09/19 02:47 Resp 12 10/09/19 02:47 BP 131/57 L 10/09/19 02:47 Pulse Ox 96 10/09/19 02:47 Weight - Most Recent: 138 lb 4.8 oz I&O - Last 24 Hours: Intake & Output 10/08/19 10/09/19 10/09/19 22:59 06:59 14:59 Intake Total 1140 650 Output Total 400 700 Balance 740 -50 Lab Results Last 24 Hrs: Laboratory Results - last 24 hr 10/08/19 10/09/19 Range/Units 08:35 05:30 WBC 10.99 H (3.98-10.04) K/mm3 RBC 4.24 (3.98-5.22) M/mm3 Hgb 11.7 D (11.2-15.7) gm/dl Hct 37.2 (34.1-44.9) % MCV 87.7 (79.4-94.8) fl MCH 27.6 (25.6-32.2) pg MCHC 31.5 L (32.2-35.5) g/dl RDW Std Deviation 44.0 (36.4-46.3) fL Plt Count 259 (182-369) K/mm3 MPV 9.3 L (9.4-12.3) fl Blood Type A POSITIVE Gel Antibody Screen Negative Med Orders - Current: Current Medications Amlodipine Besylate (Norvasc) 5 mg PO QPM [facility] Last Admin: 10/08/19 17:52 Dose: 5 mg Documented by: Aspirin (Ecotrin) 325 mg PO BID [facility] Bisacodyl (Dulcolax) 5 mg PO DAILY PRN PRN Reason: Constipation Cholecalciferol (Vitamin D3) 5,000 unit PO DAILY [facility] Cyclobenzaprine HCl (Flexeril) 5 mg PO BID PRN PRN Reason: Spasms Docusate Sodium (Colace) 100 mg PO BID [facility] Last Admin: 06/29/20 20:26 Dose: 100 mg Documented by: Famotidine (Pepcid) 20 mg PO Q12H [facility] Last Admin: 10/08/19 20:26 Dose: 20 mg Documented by: Cefazolin Sodium/Dextrose 2 gm (/ Premix) 50 mls @ 100 mls/hr IV Q8H [facility] Stop: 10/09/19 08:44 Last Admin: 10/08/19 23:18 Dose: 100 mls/hr Documented by: Ketorolac Tromethamine (Toradol) 15 mg IVPUSH Q6H PRN PRN Reason: Pain Magnesium Hydroxide (Milk Of Magnesia) 30 ml PO BID PRN PRN Reason: Constipation Morphine Sulfate (Morphine) 2 mg IVPUSH Q2H PRN PRN Reason: Breakthrough Pain Naloxone HCl (Narcan) 0.1 mg IVPUSH Q5M PRN PRN Reason: Oversedation Ondansetron HCl (Zofran) 4 mg IVPUSH Q6H PRN PRN Reason: Nausea/Vomiting Oxycodone/Acetaminophen (Percocet 325-5 Mg) 1 - 2 tab PO Q4H PRN PRN Reason: Pain Last Admin: 10/08/19 17:52 Dose: 2 tab Documented by: Senna (Senna) 8.6 mg PO BID PRN PRN Reason: Constipation Discontinued Medications Bupivacaine HCl (Sensorcaine-Mpf 0.25%) Confirm Administered Dose 40 ml .ROUTE .STK-MED ONE Stop: 10/08/19 08:16 Last Admin: 10/08/19 10:44 Dose: 40 ml Documented by: Cefazolin Sodium (Ancef) Confirm Administered Dose 2 gm .ROUTE .STK-MED ONE Stop: 10/08/19 08:06 Cefazolin Sodium (Ancef) Confirm Administered Dose 2 gm .ROUTE .STK-MED ONE Stop: 10/08/19 08:16 Last Admin: 10/08/19 10:40 Dose: 2 gm Documented by: Morphine Sulfate 8 mg/Epinephrine HCl 0.3 mg/Cefuroxime Sodium 750 mg/Ketorolac Tromethamine 30 mg/Sodium Chloride 7.9 ml 0 mg .XX ONETIME ONE Stop: 10/08/19 10:01 Last Admin: 10/08/19 10:45 Dose: 788.3 mg Documented by: Ephedrine Sulfate (Ephedrine 25 Mg/5 Ml Syringe) Confirm Administered Dose 25 mg IV .STK-MED ONE Stop: 10/08/19 09:49 Ephedrine Sulfate (Ephedrine 25 Mg/5 Ml Syringe) Confirm Administered Dose 25 mg IV .STK-MED ONE Stop: 10/08/19 10:08 Fentanyl (Sublimaze) Confirm Administered Dose 100 mcg .ROUTE .STK-MED ONE Stop: 10/08/19 08:02 Lactated Ringer's (Ringers, Lactated) 1,000 mls @ 125 mls/hr IV ASDIRECTED KRISTINA Stop: 10/08/19 23:00 Last Admin: 10/08/19 11:57 Dose: 125 mls/hr Documented by: Lidocaine HCl (Xylocaine-Mpf 1%) Confirm Administered Dose 4 mls @ as directed .ROUTE .ST-MED ONE Stop: 10/08/19 08:03 Lactated Ringer's (Ringers, Lactated) Confirm Administered Dose 1,000 mls @ as directed .ROUTE .ST-MED ONE Stop: 10/08/19 10:03 Iodine (Iodine 2% Mild Tincture) Confirm Administered Dose 30 ml .ROUTE .STK-MED ONE Stop: 10/08/19 08:16 Last Admin: 10/08/19 10:39 Dose: 18 ml Documented by: Lidocaine/Sodium Bicarbonate (Buffered Lidocaine 1% In Ns 8.4%) 0.25 ml IDERM ONETIME PRN PRN Reason: Prior to IV Start Stop: 10/08/19 18:00 Last Admin: 10/08/19 08:35 Dose: 0.25 ml Documented by: Midazolam HCl (Versed 1 Mg/Ml) Confirm Administered Dose 2 mg .ROUTE .STK-MED ONE Stop: 10/08/19 08:02 Miscellaneous Medication (Phenylephrine 1 Mg/10 Ml-Ns) Confirm Administered Dose 1 mg IV .STK-MED ONE Stop: 10/08/19 10:35 Ondansetron HCl (Zofran) Confirm Administered Dose 4 mg .ROUTE .STK-MED ONE Stop: 10/08/19 08:02 Propofol (Diprivan 20 Ml) Confirm Administered Dose 200 mg .ROUTE .STK-MED ONE Stop: 10/08/19 08:02 Propofol (Diprivan 20 Ml) Confirm Administered Dose 200 mg .ROUTE .STK-MED ONE Stop: 10/08/19 10:03 Propofol (Diprivan 20 Ml) Confirm Administered Dose 200 mg .ROUTE .STK-MED ONE Stop: 10/08/19 10:33 Sodium Chloride (Saline Flush) 10 ml FLUSH ASDIRECTED PRN PRN Reason: Keep Vein Open Stop: 10/08/19 18:00 Tranexamic Acid (Cyklokapron) Confirm Administered Dose 1,000 mg .ROUTE .STK-MED ONE Stop: 10/08/19 08:16 Last Admin: 10/08/19 10:46 Dose: 1,000 mg Documented by: Triamcinolone Acetonide (Kenalog-40) Confirm Administered Dose 80 mg .ROUTE .STK-MED ONE Stop: 10/08/19 08:16 Last Admin: 10/08/19 10:51 Dose: 80 mg Documented by: Vancomycin HCl (Vancomycin) Confirm Administered Dose 1 gm .ROUTE .STK-MED ONE Stop: 10/08/19 08:16 Last Admin: 10/08/19 10:45 Dose: 1 gm Documented by: - Exam Wound/Incisions: Dressing Dry and Intact General: Alert, Cooperative, No Acute Distress Lungs: Normal Respiratory Effort Extremities: Other (NVS intact for RLE. Silverio's negative. Right thigh soft.) Sepsis Event Note - Evaluation Sepsis Screening Result: No Definite Risk - Focused Exam Vital Signs: Vital Signs Temp Pulse Resp BP Pulse Ox 10/09/19 02:47 97.7 F 76 12 131/57 L 96 10/08/19 23:26 97.7 F 115/79 10/08/19 23:23 72 16 97 10/08/19 20:35 136/59 L Date Exam was Performed: 10/09/19 Time Exam was Performed: 08:06 - Problem List Review Problem List Initiated/Reviewed/Updated: Yes - My Orders Last 24 Hours: Active Orders 24 hr Category Date Time Status Communication Order [RC] ROUTINE Care 10/08/19 11:19 Active Cooling Warming Measures [RC] ASDIRECTED Care 10/08/19 11:19 Active Notify Provider [RC] ASDIRECTED Care 10/08/19 11:19 Active Pulse Oximetry [RC] ASDIRECTED Care 10/08/19 11:19 Active Ready for Discharge [RC] PER UNIT ROUTINE Care 10/09/19 08:06 Ordered Regular Diet [DIET] Diet 10/08/19 Lunch Active COMPREHENSIVE METABOLIC PN,CMP [CHEM] Routine Lab 10/09/19 08:03 Ordered Aspirin [Ecotrin] Med 10/09/19 09:00 Active 325 mg PO BID Cholecalciferol (Vitamin D3) [Vitamin D3] Med 10/09/19 09:00 Active 5,000 unit PO DAILY Docusate Sodium [Colace] Med 10/08/19 21:00 Active 100 mg PO BID Famotidine [Pepcid] Med 10/08/19 21:00 Active 20 mg PO Q12H amLODIPine [Norvasc] Med 10/08/19 18:00 Active 5 mg PO QPM ceFAZolin [Ancef] 2 gm Med 10/08/19 16:15 Active Premix Bag 1 bag IV Q8H Medication Orders Amlodipine Besylate (Norvasc) 5 mg PO QPM [facility] Last Admin: 10/08/19 17:52 Dose: 5 mg Documented by: TAJ Aspirin (Ecotrin) 325 mg PO BID [facility]STINA Bisacodyl (Dulcolax) 5 mg PO DAILY PRN PRN Reason: Constipation Cholecalciferol (Vitamin D3) 5,000 unit PO DAILY [facility] Cyclobenzaprine HCl (Flexeril) 5 mg PO BID PRN PRN Reason: Spasms Docusate Sodium (Colace) 100 mg PO BID [facility] Last Admin: 10/08/19 20:26 Dose: 100 mg Documented by: TIAGO Famotidine (Pepcid) 20 mg PO Q12H [facility] Last Admin: 10/08/19 20:26 Dose: 20 mg Documented by: TIAGO Cefazolin Sodium/Dextrose 2 gm (/ Premix) 50 mls @ 100 mls/hr IV Q8H [facility] Stop: 10/09/19 08:44 Last Admin: 10/08/19 23:18 Dose: 100 mls/hr Documented by: Infusion: 10/08/19 16:07 Dose: 100 mls/hr Documented by: Admin: 10/08/19 15:37 Dose: 100 mls/hr Documented by: FLORES Ketorolac Tromethamine (Toradol) 15 mg IVPUSH Q6H PRN PRN Reason: Pain Magnesium Hydroxide (Milk Of Magnesia) 30 ml PO BID PRN PRN Reason: Constipation Morphine Sulfate (Morphine) 2 mg IVPUSH Q2H PRN PRN Reason: Breakthrough Pain Naloxone HCl (Narcan) 0.1 mg IVPUSH Q5M PRN PRN Reason: Oversedation Ondansetron HCl (Zofran) 4 mg IVPUSH Q6H PRN PRN Reason: Nausea/Vomiting Oxycodone/Acetaminophen (Percocet 325-5 Mg) 1 - 2 tab PO Q4H PRN PRN Reason: Pain Last Admin: 10/08/19 17:52 Dose: 2 tab Documented by: [id number] Admin: 10/08/19 14:07 Dose: 1 tab Documented by: [id number] Admin: 10/08/19 13:10 Dose: 1 tab Documented by: FLORES Ocasio (Senna) 8.6 mg PO BID PRN PRN Reason: Constipation - Assessment Assessment (Free Text/Narrative):: POD#1 - right SKYE with left knee cortisone injection - Plan Plan (Free Text/Narrative):: 1. Hgb 11.7. 2. 325mg ASA PO BID, frequent mobility, TEDs. 3. Discharge today if cleared by Hospitalist service. 4. Outpatient therapy. SKYE precations. The pt's case was discussed with Dr. Velez.
[2019-10-09] MEDS ORDERED: Cholecalciferol (Vitamin D3) 5,000 UNIT Tab PO SCH (09:00)
[2019-10-09] MEDS ORDERED: Aspirin 325 MG Tab.EC PO SCH (09:00)
[2019-10-09] MEDS: ceFAZolin 2 GM in Premix Bag 1 BAG IV SCH (09:09)
[2019-10-09] MEDS: Famotidine 20 MG Tab PO SCH (09:11)
[2019-10-09] MEDS: Docusate Sodium 100 MG Cap PO SCH (09:11)
[2019-10-09] MEDS: Acetaminophen/oxyCODONE 325-5 MG Tab PO PRN (09:12)
--- NOTE | 2019-10-09 10:59 | PCM48HPAN ---
Post Anesthesia Note - EVALUATION WITHIN 48HRS OF ANESTHETIC Vital Signs in Normal Range: Yes Patient Participated in Evaluation: Yes Respiratory Function Stable: Yes Airway Patent: Yes Cardiovascular Function Stable: Yes Hydration Status Stable: Yes Pain Control Satisfactory: Yes Nausea and Vomiting Control Satisfactory: Yes Mental Status Recovered: Yes Vital Signs: Last Vital Signs Temp 36.7 C 10/09/19 07:27 Pulse 79 10/09/19 07:27 Resp 14 10/09/19 07:27 BP 132/63 10/09/19 07:27 Pulse Ox 100 10/09/19 07:27 - COMMENTS/OBSERVATIONS Free Text/Narrative:: no anesthesia complications noted
--- NOTE | 2019-10-10 09:35 | PCM.DCSUM1 ---
Discharge Summary - Hospital Course Brief History: Yoanna is a 79 yo female who underwent right SKYE with left knee cortisone injection with Dr. Velez on 10-08-2019. The procedure was completed under spinal anesthesia with sedation. The pt tolerated the procedure well and was admitted to the Medical-Surgical Unit. Medical management was provided by the Hospitalist service. The pt's Hospital course was uneventful. The pt's Hgb on POD#1 was 11.7. On POD#1, 325mg ASA BID was initiated for VTE prophylaxis. SCDs and TEDs were also ordered. A Mepilex dressing was placed at the incision site at the time of surgery and remained clean and dry. The pt participated in P.T. and O.T. and progressed well. She followed the SKYE precautions. The pt was allowed to WBAT and used a FWW for mobility. On POD#1, the pt was deemed appropriate to discharge to home with her family. - Discharge Data Discharge Date: 10/09/19 Discharge Disposition: Home, Self-Care 01 Condition: Good - Referral to Home Health Primary Care Physician: Mercedes Mcknight NP - Patient Summary/Data Operative Procedure(s) Performed: right total hip arthroplasty Consults: Consultations 10/08/19 06:18 OT Evaluation and Treatment [CONS] Routine PT Evaluation and Treatment [CONS] Routine 10/08/19 06:19 Consult to Physician [CONS] Routine - Patient Instructions Diet: Usual Diet as Tolerated Activity: Apply Ice, As Tolerated, Elevate Extremity, Full Weight Bearing Activity, Other: Follow the total hip precautions. Driving: Do Not Drive Showering/Bathing: May Shower Wound/Incision Care: Keep Operative Site/Wound Site Clean and Dry, Do NOT Change Dressing Notify Provider of: Fever, Increased Pain, Swelling and Redness, Drainage, Nausea and/or Vomiting Other/Special Instructions: Please get up and moving around EVERY HOUR while awake. This helps to prevent blood clots. Please use your walker and have help with mobility as needed. Take a short walk in your home every hour while awake. Please take 325mg aspirin TWICE daily. The aspirin is being used for blood clot prevention and not for pain management so please do not miss a dose of the medication. You could use a medication like Pepcid or Tagamet and a medication like Prilosec or Nexium to protect your stomach while you are using the aspirin. At home, please complete the exercises that you learned during the Hospital stay. Schedule for physical therapy. Use the pain medication as needed. The medication may cause drowsiness and constipation. Contact your primary care provider for instructions if you are constipated. You may use a stool softener like docusate sodium or Colace 100mg twice daily and/or a laxative like Miralax daily for constipation. Increase your water and fiber intake while you are using the pain medication. Discontinue use of the pain medication as soon as able. Please do not use other medications that may cause drowsiness (other pain medications, anxiety pills, cold medications, sleeping pills, etc) while using the prescription pain medication. Do not use alcohol while using the pain medication. You may use acetaminophen or Tylenol for pain management, however, please ensure you are not using over 4000 mg or 4 grams of acetaminophen per day from all sources. Your pain medication has 325mg of acetaminophen per tablet. At this time, please do not use ibuprofen (Motrin, Advil) or naproxen (Aleve) for pain management as you are using the aspirin. When the aspirin course is completed in 4 to 6 weeks, you could use ibuprofen or naproxen for pain management (if this is allowed by your primary care provider). Wear the NATHALIE hose during the day and you may remove these at night. Elevate the limb to decrease swelling. Place ice to the area often. Place a towel between your skin and the blue pad. Use the incentive spirometer often. Take deep breaths throughout the day. Please keep the dressing in place until follow-up. Notify the Clinic if the dressing becomes saturated. Increase your protein intake while you are healing. If you have diabetes, please closely monitor your blood sugars and notify your primary care provider with abnormal values. Elevated blood sugars increases the risk of infection. Call the Clinic with questions or concerns - [phone] and leave a message for the nurse. - Discharge Plan *PRESCRIPTION DRUG MONITORING PROGRAM REVIEWED*: No *COPY OF PRESCRIPTION DRUG MONITORING REPORT IN PATIENT JAS: No Prescriptions/Med Rec: Aspirin [Ecotrin EC] 325 mg PO BID #70 tab.ec Cyclobenzaprine [Flexeril] 5 mg PO BID PRN #10 tablet PRN Reason: Spasms Acetaminophen/oxyCODONE [Percocet 325-5 MG] 1 - 2 tab PO Q6H PRN #60 tablet PRN Reason: Pain Home Medications: Home Meds Cholecalciferol (Vitamin D3) [Vitamin D3] 5,000 unit PO DAILY 05/06/19 [History] amLODIPine Besylate [Amlodipine Besylate] 5 mg PO DAILY 05/06/19 [History] lisinopriL [Lisinopril] 20 mg PO DAILY 05/06/19 [History] Multivit-Min/FA/Lutein/Zeaxant [Macular Vitamin Tablet] 2 tab PO DAILY 10/05/19 [History] Acetaminophen/oxyCODONE [Percocet 325-5 MG] 1 - 2 tab PO Q6H PRN #60 tablet 10/09/19 [Rx] Aspirin [Ecotrin EC] 325 mg PO BID #70 tab.ec 10/09/19 [Rx] Cyclobenzaprine [Flexeril] 5 mg PO BID PRN #10 tablet 10/09/19 [Rx] Docusate Sodium [Colace] 100 mg PO BID cap 10/09/19 [Rx] Famotidine [Pepcid] 20 mg PO Q12H tablet 10/09/19 [Rx] Magnesium Hydroxide [Milk of Magnesia] 30 ml PO BID PRN cup 10/09/19 [Rx] Sennosides [Senna] 8.6 mg PO BID PRN tablet 10/09/19 [Rx] bisacodyL [Dulcolax] 5 mg PO DAILY PRN tablet 10/09/19 [Rx] Patient Handouts: Total Hip Replacement, [id number] Referrals: Eryn Kimball PA-C [Physician [employer] Installation Supervisor] - (Please follow up with Eryn Kimball PA-C on the following dates- October 15 at 2pm, October 22 at 2pm, and November 19 at 2pm.) - Discharge Summary/Plan Comment DC Time >30 min.: No - Patient Data Vitals - Most Recent: Last Vital Signs Temp 97.9 F 10/09/19 11:59 Pulse 70 10/09/19 11:59 Resp 20 10/09/19 11:59 BP 115/89 10/09/19 11:59 Pulse Ox 96 10/09/19 11:59 Weight - Most Recent: 138 lb 4.8 oz Med Orders - Current: Current Medications Discontinued Medications Amlodipine Besylate (Norvasc) 5 mg PO QPM [facility]ST[facility] Last Admin: 10/08/19 17:52 Dose: 5 mg Documented by: Aspirin (Ecotrin) 325 mg PO BID [facility] Last Admin: 10/09/19 09:11 Dose: 325 mg Documented by: Bisacodyl (Dulcolax) 5 mg PO DAILY PRN PRN Reason: Constipation Bupivacaine HCl (Sensorcaine-Mpf 0.25%) Confirm Administered Dose 40 ml .ROUTE .STK-MED ONE Stop: 10/08/19 08:16 Last Admin: 10/08/19 10:44 Dose: 40 ml Documented by: Cefazolin Sodium (Ancef) Confirm Administered Dose 2 gm .ROUTE .STK-MED ONE Stop: 10/08/19 08:06 Cefazolin Sodium (Ancef) Confirm Administered Dose 2 gm .ROUTE .STK-MED ONE Stop: 10/08/19 08:16 Last Admin: 10/08/19 10:40 Dose: 2 gm Documented by: Cholecalciferol (Vitamin D3) 5,000 unit PO DAILY [facility] Last Admin: 10/09/19 09:11 Dose: 5,000 unit Documented by: Morphine Sulfate 8 mg/Epinephrine HCl 0.3 mg/Cefuroxime Sodium 750 mg/Ketorolac Tromethamine 30 mg/Sodium Chloride 7.9 ml 0 mg .XX ONETIME ONE Stop: 10/08/19 10:01 Last Admin: 10/08/19 10:45 Dose: 788.3 mg Documented by: Cyclobenzaprine HCl (Flexeril) 5 mg PO BID PRN PRN Reason: Spasms Docusate Sodium (Colace) 100 mg PO BID [facility] Last Admin: 10/09/19 09:11 Dose: 100 mg Documented by: Ephedrine Sulfate (Ephedrine 25 Mg/5 Ml Syringe) Confirm Administered Dose 25 mg IV .STK-MED ONE Stop: 10/08/19 09:49 Ephedrine Sulfate (Ephedrine 25 Mg/5 Ml Syringe) Confirm Administered Dose 25 mg IV .STK-MED ONE Stop: 10/08/19 10:08 Famotidine (Pepcid) 20 mg PO Q12H [facility] Last Admin: 10/09/19 09:11 Dose: 20 mg Documented by: Fentanyl (Sublimaze) Confirm Administered Dose 100 mcg .ROUTE .STK-MED ONE Stop: 10/08/19 08:02 Lactated Ringer's (Ringers, Lactated) 1,000 mls @ 125 mls/hr IV ASDIRECTED [facility] Stop: 10/08/19 23:00 Last Admin: 10/08/19 11:57 Dose: 125 mls/hr Documented by: Cefazolin Sodium/Dextrose 2 gm (/ Premix) 50 mls @ 100 mls/hr IV Q8H [facility] Stop: 10/09/19 08:44 Last Admin: 10/09/19 09:09 Dose: 100 mls/hr Documented by: Lidocaine HCl (Xylocaine-Mpf 1%) Confirm Administered Dose 4 mls @ as directed .ROUTE .STK-MED ONE Stop: 10/08/19 08:03 Lactated Ringer's (Ringers, Lactated) Confirm Administered Dose 1,000 mls @ as directed .ROUTE .STK-MED ONE Stop: 10/08/19 10:03 Iodine (Iodine 2% Mild Tincture) Confirm Administered Dose 30 ml .ROUTE .STK-MED ONE Stop: 10/08/19 08:16 Last Admin: 10/08/19 10:39 Dose: 18 ml Documented by: Ketorolac Tromethamine (Toradol) 15 mg IVPUSH Q6H PRN PRN Reason: Pain Lidocaine/Sodium Bicarbonate (Buffered Lidocaine 1% In Ns 8.4%) 0.25 ml IDERM ONETIME PRN PRN Reason: Prior to IV Start Stop: 10/08/19 18:00 Last Admin: 10/08/19 08:35 Dose: 0.25 ml Documented by: Magnesium Hydroxide (Milk Of Magnesia) 30 ml PO BID PRN PRN Reason: Constipation Midazolam HCl (Versed 1 Mg/Ml) Confirm Administered Dose 2 mg .ROUTE .STK-MED ONE Stop: 10/08/19 08:02 Miscellaneous Medication (Phenylephrine 1 Mg/10 Ml-Ns) Confirm Administered Dose 1 mg IV .STK-MED ONE Stop: 10/08/19 10:35 Morphine Sulfate (Morphine) 2 mg IVPUSH Q2H PRN PRN Reason: Breakthrough Pain Naloxone HCl (Narcan) 0.1 mg IVPUSH Q5M PRN PRN Reason: Oversedation Ondansetron HCl (Zofran) 4 mg IVPUSH Q6H PRN PRN Reason: Nausea/Vomiting Ondansetron HCl (Zofran) Confirm Administered Dose 4 mg .ROUTE .STK-MED ONE Stop: 10/08/19 08:02 Oxycodone/Acetaminophen (Percocet 325-5 Mg) 1 - 2 tab PO Q4H PRN PRN Reason: Pain Last Admin: 10/09/19 09:12 Dose: 2 tab Documented by: Propofol (Diprivan 20 Ml) Confirm Administered Dose 200 mg .ROUTE .STK-MED ONE Stop: 10/08/19 08:02 Propofol (Diprivan 20 Ml) Confirm Administered Dose 200 mg .ROUTE .STK-MED ONE Stop: 10/08/19 10:03 Propofol (Diprivan 20 Ml) Confirm Administered Dose 200 mg .ROUTE .STK-MED ONE Stop: 10/08/19 10:33 Senna (Senna) 8.6 mg PO BID PRN PRN Reason: Constipation Sodium Chloride (Saline Flush) 10 ml FLUSH ASDIRECTED PRN PRN Reason: Keep Vein Open Stop: 10/08/19 18:00 Tranexamic Acid (Cyklokapron) Confirm Administered Dose 1,000 mg .ROUTE .STK-MED ONE Stop: 10/08/19 08:16 Last Admin: 10/08/19 10:46 Dose: 1,000 mg Documented by: Triamcinolone Acetonide (Kenalog-[email or web address]) Confirm Administered Dose 80 mg .ROUTE .STK-MED ONE Stop: 10/08/19 08:16 Last Admin: 10/08/19 10:51 Dose: 80 mg Documented by: Vancomycin HCl (Vancomycin) Confirm Administered Dose 1 gm .ROUTE .STK-MED ONE Stop: 10/08/19 08:16 Last Admin: 10/08/19 10:45 Dose: 1 gm Documented by:
--- NOTE | 2019-10-15 11:09 | OR ---
DATE OF OPERATION: 10/08/2019 SURGEON: Baljinder Velez MD OPERATIVE PROCEDURES: 1. Right total hip arthroplasty. 2. Left knee corticosteroid injection. PREOPERATIVE DIAGNOSIS: 1. Right hip osteoarthritis. 2. Left knee osteoarthritis. POSTOPERATIVE DIAGNOSIS: 1. Right hip osteoarthritis. 2. Left knee osteoarthritis. ANESTHESIA: Technique: Local MAC with spinal. ANESTHESIA PROVIDER: Ky Manjarrez. ASSISTANTS: Eryn Kimball PA-C, and Tisha Kent LPN. ESTIMATED BLOOD LOSS: 350 mL. COMPLICATIONS: None. CONDITION: Stable. IMPLANTS: 1. Nae size 54 mm solid Tritanium II acetabular cup. 2. Mims size 4 Accolade II stem. 3. Mims size 28, -2.7 mm MDM components. DESCRIPTION OF PROCEDURE: The patient was identified in the preoperative holding area. Proper site was marked and identified by the surgeon. The patient was taken back to the operating theater where after adequate anesthesia, the patient was placed in a left lateral decubitus position. Axillary roll was placed. Bony prominences were well padded. The patient's gluteal fold was parallel to the floor. Pegs were placed and well padded. The patient's right hip was then sterilely prepped and draped in the usual sterile fashion. OR time-out was performed. The patient received 2 g IV Ancef. Standard posterior incision was made centered over the greater trochanter. This was taken down to the IT band and gluteal fascia which was incised along the incisional length. Charnley retractor was then placed. Short external rotators were identified and takedown of short external rotators as well as capsulotomy was done from the level of the piriformis down to the lesser trochanter. Hip was then dislocated. Neck cut was completed and attention was turned to the acetabulum. Anterior and posterior acetabular retractors were placed. Circumferential removal of the labrum was done as well as removal of pulvinar. Starting with a 48 reamer, I was able to ream up to a 54, which was found to have good adequate purchase and good bony bleeding bed. A 54 mm solid Tritanium II acetabular cup was then impacted into place in near anatomic position for the patient and the MDM liner was impacted into place. Attention was turned to the femur. Box chisel was used out laterally. Starter awl was placed down the canal starting with the 0 broach, I was able to broach up to a size 4 which was found to be rotationally and vertically stable. Posterior components were then trialed, found to be just a small amount long, -2.7 was found to have adequate hinduism of leg lengths and was stable throughout range of motion. Bone hook was used to dislocate the trial implants. Trial implants were removed. Size 4 Accolade II stem was impacted into place. MDM components with a 28, -2.7 mm head were constructed on the back table and then impacted onto the stem. The hip was then relocated, #5 Ethibond suture was used for closure of the short external rotators and capsule. 1 L dilute Betadine solution was irrigated through the hip along with 3 L pulse lavage irrigation with Ancef. Topical tranexamic acid and vancomycin powder were applied as well as a periarticular injection. A #2 barbed suture was used for closure of IT band and gluteal fascia. 2-0 Vicryl was used subcutaneously, and Prineo was used for the skin. The patient tolerated this procedure well. After this was completed under sterile technique, the left knee injection was given with 2 mL of 40 mg Kenalog and 4 mL of 0.25% Marcaine. The patient was then sent to the PACU in stable condition. OPERATION PERFORMED: OR /[id number]
== END 2019-10-09 12:41 | disposition home or self-care (01) | DRG 470 ==
LOC: JD.MS 08:02
PROVIDERS: ADMIT Orthopaedic Surgery; ATTEND Orthopaedic Surgery
PROC: 0SR90JZ Replacement of Right Hip Joint with Synthetic Substitute, Open Approach (ICD-10-PCS; principal; 2019-10-08)
PROC: 3E0U33Z Introduction of Anti-inflammatory into Joints, Percutaneous Approach (ICD-10-PCS; 2019-10-08)
DX: M16.11 Unilateral primary osteoarthritis, right hip (principal); M17.12 Unilateral primary osteoarthritis, left knee; I10 Essential (primary) hypertension; H35.30 Unspecified macular degeneration; M70.20 Olecranon bursitis, unspecified elbow; H54.7 Unspecified visual loss; M81.0 Age-related osteoporosis without current pathological fracture; Z98.51 Tubal ligation status; Z78.0 Asymptomatic menopausal state; Z79.899 Other long term (current) drug therapy; Z87.891 Personal history of nicotine dependence; Z11.59 Encounter for screening for other viral diseases
CPT/HCPCS: 01214; 36415; 73501-26-RT; 73501-RT; 80053; 85027; 86850; 86900; 86901; 87641; 97110-GP; 97116-GP; 97162-GP; 97165-GO; 99221; 99231; A9270-GY; C1776; J0171; J0690; J0697; J1885; J2001; J2250; J2270; J2370; J2405; J2704; J3010; J3301; J3370; J3490; J7120; U0002

== ENCOUNTER 2020-01-14 06:00 | Day surgery (SDC) | payer MEDICARE, BC ==
--- NOTE | 2020-01-11 09:05 | PCM.PREANE ---
Preanesthetic Assessment - Procedure Proposed Procedure: Left TKA - Anesthesia/Transfusion/Family Hx Anesthesia History: Prior Anesthesia Without Reaction Family History of Anesthesia Reaction: No Transfusion History: No Prior Transfusion(s) Intubation History: Unknown - Review of Systems General: No Symptoms Pulmonary: No Symptoms (Quit smoking in 1984) Cardiovascular: No Symptoms (History of controlled HTN) Gastrointestinal: No Symptoms Neurological: No Symptoms (History of macular degeneration, scoliosis noted via chest xray) Other: Reports: None - Physical Assessment NPO Status Date: 01/13/20 NPO Status Time: 22:00 Vital Signs: HR:76 Sat:97% Temp:96.9 Resp:16 B/P:146/74 Height: 1.6 m Weight: 66 kg ASA Class: 2 Mental Status: Alert & Oriented x3 Airway Class: Mallampati = 1 Dentition: Reports: Dentures (top), Partial (bottom), Caries Thyro-Mental Finger Breadths: 3 Mouth Opening Finger Breadths: 3 ROM/Head Extension: Full Lungs: Clear to Auscultation, Normal Respiratory Effort Cardiovascular: Regular Rate, Regular Rhythm, No Murmurs - Lab Values: Laboratory Last Values MRSA (PCR) Negative 12/26/19 15:10 All labs reviewed and noted and within acceptable ranges to proceed with scheduled procedure. - Imaging/EKG Impressions: EKG: SR rate =74 CXR: 04/2019: scoliosis otherwise unremarkable. - Allergies Allergies/Adverse Reactions: Allergies Allergy/AdvReac Type Severity Reaction Status Date / Time No Known Allergies Allergy Verified 01/11/20 11:43 - Anesthesia Plan Pre-Op Medication Ordered: None - Acknowledgements Anesthesia Type Planned: Spinal (Left Adductor Canal Block under US Guidance for post operative pain control requested by Dr. 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: None Other Musculoskeletal History: olecranon bursitis, knee arthroscopy Neurological History: Reports: None Psychiatric History: Reports: None Endocrine/Metabolic History: Reports: None Hematologic History: Reports: None Immunologic History: Reports: None Oncologic (Cancer) History: Reports: None Dermatologic History: Reports: None - Infectious Disease History Infectious Disease History: Reports: Chicken Pox, Measles, Mumps - Past Surgical History Musculoskeletal Surgical History: Reports: Arthroscopic Knee - HOME MEDS Home Medications: Home Meds Cholecalciferol (Vitamin D3) [Vitamin D3] 5,000 unit PO DAILY 05/06/19 [History] amLODIPine Besylate [Amlodipine Besylate] 5 mg PO DAILY 05/06/19 [History] lisinopriL [Lisinopril] 20 mg PO DAILY 05/06/19 [History] Multivit-Min/FA/Lutein/Zeaxant [Macular Vitamin Tablet] 2 tab PO BID 10/05/19 [History] - CURRENT (IN HOUSE) MEDS Current Meds: Current Medications Morphine Sulfate 8 mg/Epinephrine HCl 0.3 mg/Cefuroxime Sodium 750 mg/Ketorolac Tromethamine 30 mg/Sodium Chloride 7.9 ml 0 mg .XX ASDIRECTED PRN PRN Reason: Pain Stop: 01/14/20 13:00 Lactated Ringer's (Ringers, Lactated) 1,000 mls @ 125 mls/hr IV ASDIRECTED KRISTINA Stop: 01/14/20 23:00 Lidocaine/Sodium Bicarbonate (Buffered Lidocaine 1% In Ns 8.4%) 0.25 ml IDERM ONETIME PRN PRN Reason: Prior to IV Start Stop: 01/14/20 23:00 Sodium Chloride (Saline Flush) 10 ml FLUSH ASDIRECTED PRN PRN Reason: Keep Vein Open Stop: 01/14/20 23:00
--- NOTE | 2020-01-11 09:07 | PCM.SN.2 ---
- Free Text/Narrative Note: Left selective femoral nerve block at the adductor canal for post-procedure pain control under US guidance requested by Dr. Velez. Time Out: 832 Start: 832 End: 839 Chart reviewed. Consent signed. Questions answered. Appropriate monitors applied. Time out performed. Left mid-shaft femur identified with ultrasound, scanning medially of femur, the femoral artery in the adductor canal visualized, and the femoral nerve located laterally to the artery. The skin was prepped lateral to the ultrasound probe with chlorahexadine times two. The 21ga 4 insulated block needle was inserted under direct ultrasound guidance into the adductor canal. 25mL of 0.5% ropivacaine with 1:200,000 epinephrine was injected circumferentially around the nerve with intermittent negative aspiration noted. Patient tolerated the procedure well. Sterile technique noted along with sterile gloves, mask, and sterile probe cover. See picture on progress note and vital signs on nurses notes. Block completed in PACU. Anh Hdz CRNA
[~2020-01-14 06:00] MED LIST changes: +Acetaminophen 325 MG Tab PO ONE; -Bisacodyl 5 MG Tab PO PRN; -Cyclobenzaprine 10 MG Tab PO PRN; +Dexamethasone 4 MG/ML 5 ML MDV ONE; +EPINEPHrine 1 MG/ML SDV ONE; +HYDROmorphone 1 MG/ML Syringe ONE; +Ketamine 500 mg/10 ML MDV ONE; -Ketorolac 15 MG/ML SDV IVPUSH PRN; +Ketorolac 30 MG/ML SDV ONE; +Lactated Ringers 1,000 ML IV SCH; +Lactated Ringers 1,000 ML ONE; +Lidocaine 1% 4 ML ONE; -Magnesium Hydroxide 400 MG/5 ML Susp 30 ML Cup PO PRN; +Midazolam 1 MG/ML 2 ML SDV ONE; -Morphine 2 MG/ML Syringe IVPUSH PRN; -Naloxone 0.4 MG/ML SDV IVPUSH PRN; -Ondansetron 4 MG/2 ML SDV IVPUSH PRN; +Ondansetron 4 MG/2 ML SDV ONE; +Pregabalin 25 MG Cap PO ONE; +Propofol 200 MG/20 ML SDV ONE; +Ropivacaine 0.5% 5 MG/ML 30 ML SDV ONE; -Sennosides 8.6 MG Tab PO PRN; +ceFAZolin 1 GM Vial ONE; +oxyCODONE ER 10 MG TAB.ER PO ONE
[2020-01-14] MEDS ORDERED: ePHEDrine Sulfate/0.9% NaCl/Pf 25 MG/5 ML SYRINGE IV ONE (06:29)
--- NOTE | 2020-01-14 06:56 | PCM.OPNOTE ---
- General Post-Op/Procedure Note Date of Surgery/Procedure: 01/14/20 Operative Procedure(s): left total knee arthroplasty Pre Op Diagnosis: left knee osteoarthrosis Post-Op Diagnosis: Same Anesthesia Technique: Local, MAC, Spinal Primary Surgeon: Baljinder Velez Anesthesia Provider: Anh Hdz Photograph Finisher: Eryn Kimball Photograph Finisher: Tisha Kent EBDavid in mLs: 5 Complications: None Condition: Good Free Text/Narrative:: 3 femur 4 tibia 29x9 9mm
[2020-01-14] MEDS ORDERED: Ondansetron 4 MG/2 ML SDV IVPUSH PRN (07:21)
[2020-01-14] MEDS ORDERED: ePHEDrine 50 MG/ML SDV IVPUSH PRN (07:21)
[2020-01-14] MEDS ORDERED: diphenhydrAMINE 50 MG/ML SDV IVPUSH PRN (07:21)
[2020-01-14] MEDS ORDERED: HYDROmorphone 0.5 MG/0.5 ML Syringe IVPUSH PRN (07:22)
[2020-01-14] MEDS: Bupivacaine 0.25% 10 ML SDV ONE ×2 (07:37→07:56)
[2020-01-14] MEDS: Morphine 8 MG, EPINEPHrine 0.3 MG, Cefuroxime 750 MG, Ketorolac 30 MG, Sodium Chloride ... PRN ×10 (07:37→07:56)
[2020-01-14] MEDS: Vancomycin 1 GM SDV ONE ×2 (07:38→08:08)
[2020-01-14] MEDS: ceFAZolin 1 GM Vial ONE ×2 (07:53→07:54)
--- NOTE | 2020-01-14 08:32 | PCM.POSTAN ---
POST ANESTHESIA ASSESSMENT - MENTAL STATUS Mental Status: Alert - VITAL SIGNS Vital Signs: Last Vital Signs Temp 98.1 01/14/20825 Pulse 86 01/14/20825 Resp 11 01/14/20825 BP 109/47 01/14/20825 Pulse Ox 96% 01/14/20825 - RESPIRATORY Respiratory Status: Respiratory Rate WNL, Airway Patent, O2 Saturation Stable, Supplemental Oxygen - CARDIOVASCULAR CV Status: Pulse Rate WNL, Blood Pressure Stable - GASTROINTESTINAL GI Status: No Symptoms - POST OP HYDRATION Hydration Status: Adequate & Stable
[2020-01-14] MEDS ORDERED: oxyCODONE 5 MG Tab PO PRN (08:55)
[2020-01-14] MEDS: fentaNYL 100 MCG/2 ML SDV IVPUSH PRN ×3 (09:02→09:26)
--- NOTE | 2020-01-14 09:24 | PCM48HPAN ---
Post Anesthesia Note - EVALUATION WITHIN 48HRS OF ANESTHETIC Vital Signs in Normal Range: Yes Patient Participated in Evaluation: Yes Respiratory Function Stable: Yes Airway Patent: Yes Cardiovascular Function Stable: Yes Hydration Status Stable: Yes Pain Control Satisfactory: Yes Nausea and Vomiting Control Satisfactory: Yes Mental Status Recovered: Yes Vital Signs: Last Vital Signs Temp 36.7 C 01/14/20 08:26 Pulse 76 01/14/20 06:05 Resp 18 01/14/20 09:15 BP 147/73 H 01/14/20 09:15 Pulse Ox 100 01/14/20 09:16
--- NOTE | 2020-01-21 16:45 | OR ---
DATE OF OPERATION: 01/14/2020 SURGEON: Baljinder Velez MD OPERATION PERFORMED: Left total knee arthroplasty. PREOPERATIVE DIAGNOSIS: Left knee osteoarthrosis. POSTOPERATIVE DIAGNOSIS: Left knee osteoarthrosis. ANESTHESIA: Local MAC with spinal. ANESTHESIA PROVIDER: Anh Hdz CRNA LINUX ADMIN ENGINEER: Eryn Kimball PA-C and Tisha Kent LPN. ESTIMATED BLOOD LOSS: 5 mL. COMPLICATIONS: None. CONDITION: Stable. IMPLANTS: 1. Eureka size 3 cemented PS femur. 2. Nae size 4 cemented [place] tibial base plate. 3. Nae size 4, 9 mm PS X3 polyethylene insert. 4. Nae size 29 x 9 mm cemented asymmetric patella. DESCRIPTION OF PROCEDURE: The patient was identified in the preop holding area. Proper site was marked and identified by the surgeon. The patient was taken back to the operating theater. After adequate anesthesia, the patient's left lower extremity had a nonsterile tourniquet applied and it was sterilely prepped and draped in the usual sterile fashion. OR time-out was performed. The patient received 2 g IV Ancef. At this time, the left lower extremity was exsanguinated. Tourniquet was insufflated to 300 mmHg. Standard medial parapatellar incision was made. Medial parapatellar arthrotomy was created. Deep fibers of the MCL were raised and anterior fat pad was resected. At this time, attention was turned to the patella. Patella measured 21, it was resected to a 13 for 29 x 9 mm patella. Drill holes were then drilled and found to be in adequate position. The drill was then drilled in the distal femur and the intramedullary distal femoral cutting guide was then placed. 8 mm was resected off the distal femur and was found to be an adequate resection. Sizing guide was placed. It was found to be a Nae size 3 cemented PS femur that was shown on the implant record at the beginning of this dictation. The drill holes were drilled for the epicondylar axis using [place] line and epicondyles as reference. At this time, the 4-in- 1 cutting block was placed. An anterior posterior and anterior and posterior chamfer cuts were then completed. Box cut was completed at this time. Attention was turned to the tibia. The posterior medial lateral retractors were placed. The intramedullary tibial guide was placed. It was placed in the old footprint of the ACL. It was aligned with the center of the ankle and 0 degrees of slope, 9 mm was then resected off the unaffected side. There was found to be an acceptable reduction. At this time, posterior osteophytes were removed along with medial and lateral meniscus. A trial implant was placed with a correct sized tibia that was mentioned at the beginning of the dictation. A Eureka size 4, 9 mm PS X3 polyethylene insert was then placed. The patient's knee was brought through range of motion. The patella was tracking centrally and was stable to varus and valgus stress. Alignment was found to be roughly at 0 degrees. The tibia was stamped and drilled in proper rotation. The [place] tibial base plate was impacted in place. Next, the Eureka size 3 cemented PS femur impacted into place and the Nae size 4, 9 mm PS X3 polyethylene insert was placed. The patient's knee was brought into full extension. The patella was then cemented in place at this time. Excess cement was removed. Irricept was irrigated through the knee along with 1 L of pulse lavage irrigation with Ancef. Periarticular injection was then completed. The patient's knee was brought through a range of motion. Once the cement had time to set up and it was found to be stable to varus valgus stress, the patella was tracking centrally with full range of motion. At this time, a #2 barbed suture was used for closure of the medial parapatellar arthrotomy. Topical tranexamic acid was placed. 2-0 Vicryl was used subcutaneously, Prineo was used for the skin. The patient tolerated the procedure well and was sent to the PACU in stable condition. MMSHARONA /[id number] [place]
== END 2020-01-14 14:17 | disposition home or self-care (01) ==
LOC: JD.SDS 06:00
PROVIDERS: ATTEND Orthopaedic Surgery
DX: M17.12 Unilateral primary osteoarthritis, left knee (principal); I10 Essential (primary) hypertension; G89.18 Other acute postprocedural pain; H35.30 Unspecified macular degeneration; Z01.812 Encounter for preprocedural laboratory examination; Z20.828 Contact with and (suspected) exposure to other viral communicable diseases; Z79.899 Other long term (current) drug therapy; Z98.890 Other specified postprocedural states; Z87.891 Personal history of nicotine dependence
CPT/HCPCS: 27447; 73560; 87641; 97110; 97116; 97161; A9270; C1713; C1776; J0171; J0690; J0697; J1100; J1170; J1885; J2001; J2250; J2270; J2405; J2704; J2795; J3010; J3370; J3490; J7120; U0002; 01402; 64450; J2370

== ENCOUNTER 2020-04-05 10:49 | Emergency (ER) | payer MEDICARE, BC ==
--- NOTE | 2020-04-05 11:54 | EDM.PDOC ---
ED HPI GENERAL MEDICAL PROBLEM - General Chief Complaint: General Stated Complaint: CONFUSED Time Seen by Provider: 04/05/20 11:12 Source of Information: Reports: Patient, RN Notes Reviewed History Limitations: Reports: No Limitations - History of Present Illness INITIAL COMMENTS - FREE TEXT/NARRATIVE: Patient is a 79-year-old female presenting to the emergency department for e valuation with regards to new onset confusion. Patient denies that she is confused, however she is quite fixated on these "puzzle books "that she does. She is alert and oriented x4. She states that she lives in a condo setting with 8-10 other people and that they have been upset because she threw out some of her puzzle books that she did after having surgery in January. She denies being confused. She has had no recent falls. Denies hitting her head recently. Denies dysuria. States that overall she has been "doing really well ". I did call and visit with her brother Amarjit, and his Halina. They state that over the course of the last 2 weeks she has appeared quite withdrawn and more depressed. For the last 2 days she has been fixated on these puzzle books. They stated that she did these while she was staying with them when she had surgery back in January and she threw out to the ones that were completed and she seems quite upset about that now. Her neighbors report that she has been knocking on their doors repeatedly talking about her puzzle books. They are concerned that she could have some underlying medical issue that is causing her confusion. They state that there were a number of individuals in her condo that tested positive for Covid and one that from it, therefore they are concerned that she could have Covid that is affecting her brain. They state t hat once her work-up here is complete, they plan to take her home with them so that they may keep a closer eye on her. - Related Data Allergies Allergy/AdvReac Type Severity Reaction Status Date / Time No Known Allergies Allergy Verified 04/05/20 11:08 Home Meds: Home Meds Cholecalciferol (Vitamin D3) [Vitamin D3] 5,000 unit PO DAILY 05/06/19 [History] amLODIPine Besylate [Amlodipine Besylate] 5 mg PO DAILY 05/06/19 [History] lisinopriL [Lisinopril] 20 mg PO DAILY 05/06/19 [History] Multivit-Min/FA/Lutein/Zeaxant [Macular Vitamin Tablet] 2 tab PO BID 10/05/19 [History] Nitrofurantoin Monohyd/M-Cryst [Macrobid 100 mg Capsule] 100 mg PO BID #9 capsule 04/05/20 [Rx] Past Medical History HEENT History: Reports: Cataract, Impaired Vision, Macular Degeneration, Other (See Below) Other HEENT History: impacted cerumen Cardiovascular History: Reports: Hypertension Respiratory History: Reports: None Gastrointestinal History: Reports: None Genitourinary History: Reports: None ECONOMIC ADVISER History: Reports: None Other Musculoskeletal History: olecranon bursitis, knee arthroscopy Neurological History: Reports: None Psychiatric History: Reports: None Endocrine/Metabolic History: Reports: None Hematologic History: Reports: None Immunologic History: Reports: None Oncologic (Cancer) History: Reports: None Dermatologic History: Reports: None - Infectious Disease History Infectious Disease History: Reports: Chicken Pox, Measles, Mumps - Past Surgical History Head Surgeries/Procedures: Reports: None Cardiovascular Surgical History: Reports: None Respiratory Surgical History: Reports: None GI Surgical History: Reports: None Female Surgical History: Reports: Tubal Ligation Endocrine Surgical History: Reports: None Neurological Surgical History: Reports: None Musculoskeletal Surgical History: Reports: Arthroscopic Knee, Knee Replacement Other Musculoskeletal Surgeries/Procedures:: bilateral hip replacements Oncologic Surgical History: Reports: None Dermatological Surgical History: Reports: None Social & Family History - Family History Family Medical History: No Pertinent Family History - Tobacco Use Tobacco Use Status *Q: Never Tobacco User Second Hand Smoke Exposure: No - Caffeine Use Caffeine Use: Reports: Coffee - Recreational Drug Use Recreational Drug Use: No ED ROS GENERAL - Review of Systems Review Of Systems: See Below Constitutional: Reports: No Symptoms. Denies: Fever, Chills, Weakness, Fatigue HEENT: Reports: No Symptoms Respiratory: Reports: No Symptoms. Denies: Shortness of Breath, Cough Cardiovascular: Reports: No Symptoms. Denies: Chest Pain, Dyspnea on Exertion, Syncope Endocrine: Reports: No Symptoms GI/Abdominal: Reports: No Symptoms : Reports: No Symptoms. Denies: Dysuria, Frequency, Hematuria Musculoskeletal: Reports: No Symptoms Skin: Reports: No Symptoms Neurological: Reports: Confusion. Denies: Dizziness, Headache, Change in Speech, Gait Disturbance Psychiatric: Reports: Confusion Hematologic/Lymphatic: Reports: No Symptoms Immunologic: Reports: No Symptoms ED EXAM, GENERAL - Physical Exam Exam: See Below General Appearance: Alert, WD/WN, No Apparent Distress Respiratory/Chest: No Respiratory Distress, Lungs Clear, Normal Breath Sounds, No Accessory Muscle Use, Chest Non-Tender Cardiovascular: Normal Peripheral Pulses, Regular Rate, Rhythm, No Edema, No Gallop, No JVD, No Murmur, No Rub GI/Abdominal: Normal Bowel Sounds, Soft, Non-Tender, No Organomegaly, No Distention, No Abnormal Bruit, No Mass Neurological: Alert, Oriented, CN II-XII Intact, Normal Cognition, Normal Gait, Normal Reflexes, No Motor/Sensory Deficits, Other (Fixated on her puzzle books. Answers all orientation questions appropriately.) Psychiatric: Normal Affect, Normal Mood Skin Exam: Warm, Dry, Intact, Normal Color, No Rash Course - Vital Signs Last Recorded V/S: Last Vital Signs Temp 97.6 F 04/05/20 11:04 Pulse 107 H 04/05/20 11:04 Resp 16 04/05/20 11:04 BP 151/73 H 04/05/20 11:04 Pulse Ox 94 L 04/05/20 11:04 - Orders/Labs/Meds Orders: Active Orders 24 hr Category Date Time Status Head wo Cont [CT] Stat Exams 04/05/20 11:23 Taken CULTURE URINE [RM] Stat Lab 04/05/20 12:00 Received Labs: Laboratory Tests 04/05/20 04/05/20 04/05/20 Range/Units 12:00 12:05 12:05 WBC 5.76 (3.98-10.04) K/mm3 RBC 4.60 (3.98-5.22) M/mm3 Hgb 12.9 (11.2-15.7) gm/dl Hct 41.0 (34.1-44.9) % MCV 89.1 (79.4-94.8) fl MCH 28.0 (25.6-32.2) pg MCHC 31.5 L (32.2-35.5) g/dl RDW Std Deviation 44.5 (36.4-46.3) fL Plt Count 338 (182-369) K/mm3 MPV 8.7 L (9.4-12.3) fl Neut % (Auto) 71.9 H (34.0-71.1) % Lymph % (Auto) 17.9 L (19.3-51.7) % [place] % (Auto) 9.2 (4.7-12.5) % Eos % (Auto) 0.7 (0.7-5.8) Baso % (Auto) 0.3 (0.1-1.2) % Neut # (Auto) 4.14 (1.56-6.13) K/mm3 Lymph # (Auto) 1.03 L (1.18-3.74) K/mm3 [place] # (Auto) 0.53 H (0.24-0.36) K/mm3 Eos # (Auto) 0.04 (0.04-0.36) K/mm3 Baso # (Auto) 0.02 (0.01-0.08) K/mm3 Sodium 137 (136-145) mEq/L Potassium 3.8 (3.5-5.1) mEq/L Chloride 102 (98-107) mEq/L Carbon Dioxide 27 (21-32) mEq/L Anion Gap 11.8 (5-15) BUN 9 (7-18) mg/dL Creatinine 0.8 (0.55-1.02) mg/dL Est Cr Clr Drug Dosing 47.17 mL/min Estimated GFR (MDRD) > 60 (>60) mL/min BUN/Creatinine Ratio 11.3 L (14-18) Glucose 102 (83-115) mg/dL Calcium 9.0 (8.5-10.1) mg/dL Magnesium 2.2 (1.8-2.4) mg/dl Total Bilirubin 1.1 H (0.2-1.0) mg/dL AST 24 (15-37) U/L ALT 25 (14-59) U/L Alkaline Phosphatase 86 (46-116) U/L C-Reactive Protein 0.8 (<1.0) mg/dL Total Protein 6.6 (6.4-8.2) g/dl Albumin 3.6 (3.4-5.0) g/dl Globulin 3.0 gm/dL Albumin/Globulin Ratio 1.2 (1-2) Urine Color Yellow (Yellow) Urine Appearance Clear (Clear) Urine pH 7.0 (5.0-8.0) Ur Specific [place] 1.020 (1.005-1.030) Urine Protein 1+ H (Negative) Urine Glucose (UA) Negative (Negative) Urine Ketones 1+ H (Negative) Urine Occult Blood Negative (Negative) Urine Nitrite Negative (Negative) Urine Bilirubin Negative (Negative) Urine Urobilinogen 1.0 (0.2-1.0) Ur Leukocyte Esterase Trace H (Negative) U Hyaline Cast (Auto) 10-20 H (0-5) /lpf Urine RBC Not seen (0-5) /hpf Urine WBC 0-5 (0-5) /hpf Ur Epithelial Cells 0-5 (0-5) /hpf Urine Bacteria Many H (FEW) /hpf Urine Mucus Many H (FEW) /hpf SARS-CoV-2 RNA (MARY) (NEGATIVE) 04/05/20 Range/Units 12:50 WBC (3.98-10.04) K/mm3 RBC (3.98-5.22) M/mm3 Hgb (11.2-15.7) gm/dl Hct (34.1-44.9) % MCV (79.4-94.8) fl MCH (25.6-32.2) pg MCHC (32.2-35.5) g/dl RDW Std Deviation (36.4-46.3) fL Plt Count (182-369) K/mm3 MPV (9.4-12.3) fl Neut % (Auto) (34.0-71.1) % Lymph % (Auto) (19.3-51.7) % [place] % (Auto) (4.7-12.5) % Eos % (Auto) (0.7-5.8) Baso % (Auto) (0.1-1.2) % Neut # (Auto) (1.56-6.13) K/mm3 Lymph # (Auto) (1.18-3.74) K/mm3 [place] # (Auto) (0.24-0.36) K/mm3 Eos # (Auto) (0.04-0.36) K/mm3 Baso # (Auto) (0.01-0.08) K/mm3 Sodium (136-145) mEq/L Potassium (3.5-5.1) mEq/L Chloride (98-107) mEq/L Carbon Dioxide (21-32) mEq/L Anion Gap (5-15) BUN (7-18) mg/dL Creatinine (0.55-1.02) mg/dL Est Cr Clr Drug Dosing mL/min Estimated GFR (MDRD) (>60) mL/min BUN/Creatinine Ratio (14-18) Glucose (83-115) mg/dL Calcium (8.5-10.1) mg/dL Magnesium (1.8-2.4) mg/dl Total Bilirubin (0.2-1.0) mg/dL AST (15-37) U/L ALT (14-59) U/L Alkaline Phosphatase (46-116) U/L C-Reactive Protein (<1.0) mg/dL Total Protein (6.4-8.2) g/dl Albumin (3.4-5.0) g/dl Globulin gm/dL Albumin/Globulin Ratio (1-2) Urine Color (Yellow) Urine Appearance (Clear) Urine pH (5.0-8.0) Ur Specific [place] (1.005-1.030) Urine Protein (Negative) Urine Glucose (UA) (Negative) Urine Ketones (Negative) Urine Occult Blood (Negative) Urine Nitrite (Negative) Urine Bilirubin (Negative) Urine Urobilinogen (0.2-1.0) Ur Leukocyte Esterase (Negative) U Hyaline Cast (Auto) (0-5) /lpf Urine RBC (0-5) /hpf Urine WBC (0-5) /hpf Ur Epithelial Cells (0-5) /hpf Urine Bacteria (FEW) /hpf Urine Mucus (FEW) /hpf SARS-CoV-2 RNA (MARY) Negative (NEGATIVE) Meds: Medications Discontinued Medications Generic Name Dose Route Start Last Admin Trade Name Mahnaz PRN Reason Stop Dose Admin Nitrofurantoin Macrocrystals 100 mg 04/05/20 13:15 Macrobid PO 04/05/20 13:16 ONETIME ONE - Re-Assessments/Exams Free Text/Narrative Re-Assessment/Exam: Patient is a 79-year-old female presenting to the emergency department for confusion over the last few days. Per report of her brother and [id number], patient has been fixated on these puzzle books. She has been walking around knocking on her neighbors doors and upset with regards to them. He is pleasant looks were thrown out in January once they were completed. On exam, patient's neurologic exam is grossly unremarkable. She has no focal neurologic deficits. She does answer orientation questions appropriately, however does talk frequently about these puzzle books and about pictures being scattered in the hallway. I have ordered CBC, CMP, CRP, urinalysis, Covid test, and a CT scan of the head. 04/05/20 13:34 Hematology was grossly unremarkable. Urinalysis showed trace leukocyte esterase with many bacteria suspicious for urinary tract infection. Urine has been sent for culture. CT scan of the head showed mild atrophy and nonspecific chronic white matter change. No acute intracranial abnormality identified. Visited with the patient as well as her [id number], Halina. We will start her on Macrobid for treatment of urinary tract infection. They are going to take her home with them this evening. Recommend they follow-up with her primary care provider, Petr Cervantes, at her next available appointment. Return to ER as needed. Departure - Departure Time of Disposition: 13:34 Disposition: Home, Self-Care 01 Condition: Good Clinical Impression: UTI, Urinary tract infectious disease, Confusion - Discharge Information *PRESCRIPTION DRUG MONITORING PROGRAM REVIEWED*: No *COPY OF PRESCRIPTION DRUG MONITORING REPORT IN PATIENT JAS: No Prescriptions: Nitrofurantoin Monohyd/M-Cryst [Macrobid 100 mg Capsule] 100 mg PO BID #9 capsule Instructions: Confusion, Urinary Tract Infection, Adult Referrals: Mercedes Mcknight SILK WASHING MACHINE OPERATOR [Primary Care Provider] - Forms: ED Department Discharge Additional Instructions: You were seen in the emergency department for confusion over the last few days. Your work-up included blood work, urinalysis, a Covid test, and a CT scan of your head. Your blood work and CT scan were overall normal. Covid test was negative. Urinalysis does show a mild urinary tract infection. You have been started on Macrobid for treatment of this. Take this medication as prescribed. Recommend follow-up with your primary care provider early this week for reevaluation. Return to ER for any new or worsening symptoms of concern. Sepsis Event Note (ED) - Evaluation Sepsis Screening Result: No Definite Risk - Focused Exam Vital Signs: Vital Signs Temp Pulse Resp BP Pulse Ox 04/05/20 11:04 97.6 F 107 H 16 151/73 H 94 L - My Orders Last 24 Hours: My Active Orders 04/05/20 11:23 Head wo Cont [CT] Stat 04/05/20 12:00 CULTURE URINE [RM] Stat - Assessment/Plan Last 24 Hours: My Active Orders 04/05/20 11:23 Head wo Cont [CT] Stat 04/05/20 12:00 CULTURE URINE [RM] Stat
[2020-04-05] MEDS ORDERED: Nitrofurantoin Monohydrate/Macrocrystalline 100 MG Cap PO ONE (13:15)
--- NOTE | 2020-04-06 09:54 | CT ---
Head CT Technique: Multiple axial sections through the brain were obtained. Intravenous contrast was not utilized. Comparison: No prior study is available. Findings: No prior intracranial imaging is available. Findings: Ventricles along with basal cisterns and sulci over the convexities are moderately prominent. 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 No other abnormal parenchymal densities are seen. No evidence of intracranial hemorrhage. No midline shift or mass-effect is seen. Bone window settings were reviewed. Visualized mastoid sinuses and paranasal sinuses are clear. Atherosclerotic calcification is seen within the carotid siphon. No acute calvarial finding is appreciated. Impression: 1. Senescent change as noted above. 2. Nothing acute is definitely appreciated. 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
== END 2020-04-05 13:55 | disposition home or self-care (01) ==
LOC: JD.ED 10:49
DX: R41.0 Disorientation, unspecified (principal); N39.0 Urinary tract infection, site not specified; I10 Essential (primary) hypertension; Z79.899 Other long term (current) drug therapy; Z20.828 Contact with and (suspected) exposure to other viral communicable diseases
CPT/HCPCS: 36415; 70450; 80053; 81001; 83735; 85025; 86140; 87086; 99285; A9270; U0002

== ENCOUNTER 2022-11-27 13:14 | Emergency (ER) | payer MEDICARE, BC | END 2022-11-27 14:40 | disposition home or self-care (01) | LOC: JD.ED 13:14 | DX: M25.562 Pain in left knee (principal); I10 Essential (primary) hypertension; Z79.899 Other long term (current) drug therapy | CPT/HCPCS: 93971-26-LT; 93971-LT; 99283 ==

== ENCOUNTER 2022-12-12 11:15 | Emergency (ER) | payer MEDICARE, BC ==
[2022-12-12] MEDS ORDERED: Sodium Chloride 0.9% 10 ML Syringe FLUSH PRN (11:41)
[2022-12-12 12:05] LABS: BASOPHILS PERCENT AUTO 0.5 % (0.0-1.0); EOSINOPHILS ABSOLUTE AUTO 0.1 K/mm3 (0.0-0.4); EOSINOPHILS PERCENT AUTO 1.3 % (0.0-6.0); HEMATOCRIT 37.8 % (37.0-47.0); HEMOGLOBIN 12.3 gm/dl (12.0-16.0); IMMATURE GRAN ABSOLUTE AUTO 0.03 K/mm3 (0.00-0.05); IMMATURE GRAN PERCENT AUTO 0.5 % (0.0-0.4); LYMPHOCYTES PERCENT AUTO 16.6 % (24.0-44.0); MEAN CORPUSCULAR HEMOGLOBIN 28.8 pg (28.0-32.0); MEAN CORPUSCULAR HGB CONC 32.5 g/dl (32.0-36.0); MEAN CORPUSCULAR VOLUME 88.5 fl (83.0-99.0); MEAN PLATELET VOLUME 8.9 fl (9.4-12.3); MONOCYTES ABSOLUTE AUTO 0.4 K/mm3 (0.0-0.8); MONOCYTES PERCENT AUTO 6.7 % (0.0-8.0); NEUTROPHILS ABSOLUTE AUTO 4.6 K/mm3 (1.8-7.7); NEUTROPHILS PERCENT AUTO 74.4 % (41.0-71.0); PLATELET COUNT,PLT 226 K/mm3 (150-400); RED BLOOD CELL COUNT 4.27 M/mm3 (4.10-5.30); WHITE BLOOD CELL COUNT,WBC 6.13 K/mm3 (3.9-11.3)
[2022-12-12 12:25] LABS: ALBUMIN 3.2 g/dl (3.4-5.0); BILIRUBIN TOTAL 0.9 mg/dL (0.2-1.0); CALCIUM 8.6 mg/dL (8.5-10.1); EST CRCL DRUG DOSING (CG) 35.88 mL/min; PROTEIN TOTAL,TP 6.3 g/dl (6.4-8.2)
[2022-12-12 12:38] LABS: APPEARANCE,URINE CLEAR (Clear); BILIRUBIN,URINE NEGATIVE (Negative); COLOR,URINE YELLOW (Yellow); GLUCOSE,URINE NEGATIVE (Negative); KETONES,URINE NEGATIVE (Negative); LEUKOCYTE ESTERASE,URINE NEGATIVE (Negative); NITRITE,URINE NEGATIVE (Negative); OCCULT BLOOD,URINE NEGATIVE (Negative); PROTEIN,URINE NEGATIVE (Negative); UROBILINOGEN,URINE 0.2 (0.2-1.0)
[2022-12-12 14:10] LABS: BACTERIA,URINE FEW /hpf (FEW); MUCUS,URINE FEW /hpf (FEW); RBC,URINE 0-5 /hpf (0-5); SQUAMOUS EPITHELIAL CELLS,UR 0-5 /hpf (0-5); WBC,URINE 0-5 /hpf (0-5)
== END 2022-12-12 14:40 | disposition home or self-care (01) ==
LOC: JD.ED 11:15
DX: B34.9 Viral infection, unspecified (principal); I10 Essential (primary) hypertension; Z20.822 Contact with and (suspected) exposure to COVID-19; Z79.899 Other long term (current) drug therapy
CPT/HCPCS: 36415; 71046; 80053; 81001; 85025; 99284; J3490; U0002

== ENCOUNTER 2023-03-15 11:05 | Emergency (ER) | payer MEDICARE, BC ==
[2023-03-15] MEDS ORDERED: Acetaminophen/HYDROcodone 325-5 MG Tab PO ONE (11:56)
== END 2023-03-15 12:58 | disposition home or self-care (01) ==
LOC: JD.ED 11:05
DX: M25.552 Pain in left hip (principal); Z96.642 Presence of left artificial hip joint; Z79.899 Other long term (current) drug therapy; W19.XXXA Unspecified fall, initial encounter; Y93.E2 Activity, laundry
CPT/HCPCS: 73503; 99283; A9270; 99284

== ENCOUNTER 2023-08-07 11:18 | Emergency (ER) | payer MEDICARE, BC ==
[2023-08-07 12:03] LABS: APPEARANCE,URINE CLEAR (Clear); BILIRUBIN,URINE NEGATIVE (Negative); COLOR,URINE YELLOW (Yellow); GLUCOSE,URINE NEGATIVE (Negative); KETONES,URINE NEGATIVE (Negative); LEUKOCYTE ESTERASE,URINE TRACE (Negative); NITRITE,URINE NEGATIVE (Negative); OCCULT BLOOD,URINE NEGATIVE (Negative); PROTEIN,URINE NEGATIVE (Negative)
[2023-08-07 12:06] LABS: BASOPHILS ABSOLUTE AUTO 0.1 K/mm3 (0.0-0.2); BASOPHILS PERCENT AUTO 0.7 % (0.0-1.0); EOSINOPHILS ABSOLUTE AUTO 0.1 K/mm3 (0.0-0.4); HEMATOCRIT 42.4 % (37.0-47.0); HEMOGLOBIN 13.5 gm/dl (12.0-16.0); IMMATURE GRAN ABSOLUTE AUTO 0.03 K/mm3 (0.00-0.05); IMMATURE GRAN PERCENT AUTO 0.4 % (0.0-0.4); LYMPHOCYTES ABSOLUTE AUTO 1.3 K/mm3 (1.0-4.8); LYMPHOCYTES PERCENT AUTO 17.2 % (24.0-44.0); MEAN CORPUSCULAR HGB CONC 31.8 g/dl (32.0-36.0); MEAN PLATELET VOLUME 8.4 fl (9.4-12.3); MONOCYTES ABSOLUTE AUTO 0.5 K/mm3 (0.0-0.8); MONOCYTES PERCENT AUTO 6.1 % (0.0-8.0); NEUTROPHILS ABSOLUTE AUTO 5.7 K/mm3 (1.8-7.7); NEUTROPHILS PERCENT AUTO 74.6 % (41.0-71.0); PLATELET COUNT,PLT 276 K/mm3 (150-400); RED BLOOD CELL COUNT 4.66 M/mm3 (4.10-5.30); WHITE BLOOD CELL COUNT,WBC 7.67 K/mm3 (3.9-11.3)
[2023-08-07 12:08] LABS: BACTERIA,URINE FEW /hpf (FEW); EPITHELIAL CELLS,URINE 0-5 /hpf (0-5); RBC,URINE 0-5 /hpf (0-5)
[2023-08-07 12:09] LABS: MUCUS,URINE FEW /hpf (FEW)
[2023-08-07 12:31] LABS: A/G RATIO 1.1 (1-2); ALBUMIN 3.3 g/dl (3.4-5.0); ANION GAP 9.9 (5-15); BILIRUBIN TOTAL 0.8 mg/dL (0.2-1.0); BUN/CREATININE RATIO 14.2 (14-18); CREATININE 1.2 mg/dL (0.55-1.02); EST CRCL DRUG DOSING (CG) 29.38 mL/min; POTASSIUM,K 3.9 mEq/L (3.5-5.1); PROTEIN TOTAL,TP 6.4 g/dl (6.4-8.2)
[2023-08-07] MEDS: Cephalexin 500 MG Cap PO ONE (13:22)
== END 2023-08-07 13:26 | disposition home or self-care (01) ==
LOC: JD.ED 11:18
DX: R55 Syncope and collapse (principal); N39.0 Urinary tract infection, site not specified; I10 Essential (primary) hypertension; Z79.899 Other long term (current) drug therapy
CPT/HCPCS: 36415; 80053; 81001; 84484; 85025; 93005; 99284; A9270; 93010